=== PATIENT | female | born 1960 | race Caucasian/White ===

== ENCOUNTER 2019-06-02 12:09 | Inpatient (IN) | payer SELFPAY ==
[~2019-06-02] VITALS: Ht 177.8 cm; Wt 115.0 kg
[2019-06-02] MEDS ORDERED: LACTATED RINGERS 1,000 ML IV STA (12:20)
[2019-06-02] MEDS ORDERED: ONDANSETRON 4 MG/2 ML (SDV) Z0FRAN IVP ONE (12:30)
--- NOTE | 2019-06-02 12:40 | ED General ---
General Chief Complaint: Dizziness/Syncope Stated Complaint: FREQUENT FAINTING Nursing Triage Note: PT PRESENTS TO ER VIA W/C FROM POV WITH C/O DIZZINESS X 6 HOURS, N/V X 12 HOURS. pT IS WEAK AND VOMITING YELLOW EMESIS UPON ARRIVAL. PT IS A&O 4. PT DENIES ANY PAIN OR SOB AT THIS TIME. Nursing Sepsis Screen: No Definite Risk Source of Information: Patient Exam Limitations: No Limitations History of Present Illness Date Seen by Provider: Jun 02, 2019 Time Seen by Provider: 12:14 Initial Comments Here by POV with report of dizziness for the last 12 hours with persistent nausea and vomiting and overall feeling sick for the last 24-48 hours. States the dizziness started at 12:30 AM this morning and has been quite severe. This is caused her to pass out or nearly passed out multiple times. She had started taking an antibiotic that was not hers for possible illness. She thought that maybe she had an intestinal blockage due to the vomiting. Reports constipation and started MiraLAX. She has not had a bowel movement. On arrival, patient quite dizzy and unable to assist with movement from car to wheelchair or wheelchair to bed and almost fell on both moves. Required multiple assistance to get her from the wheelchair to the bed. She states when she opens her eyes she is more dizzy and the room is spinning. Unsure about fevers. States that she feels weak all over. Patient reports vomiting bile and family member agrees with this. Timing/Duration: 1-2 Days, Getting Worse Severity: Moderate, Severe Associated Systoms: No Cough, No Fever/Chills; Loss of Appetite, Nausea/Vomiting; No Shortness of Air; Syncope, Weakness Allergies and Home Medications Allergies Coded Allergies: Iodinated Contrast Media - IV Dye (Unverified Allergy, Mild, 08/26/16) stratching throat, hives Home Medications Lisinopril 20 Mg Tablet, 20 MG PO DAILY, (Reported) Patient Home Medication List Home Medication List Reviewed: Yes Review of Systems Review of Systems Constitutional: see HPI, chills; No fever EENTM: No nose congestion, No throat pain Respiratory: No short of breath, No wheezing Cardiovascular: No chest pain, No edema; syncope Gastrointestinal: abdominal pain (right lower quadrant), constipation; No diarrhea; nausea, vomiting Genitourinary: no symptoms reported Musculoskeletal: No back pain; muscle weakness Skin: No change in color, No lesions Psychiatric/Neurological: Weakness, Other (dizziness) Hematologic/Lymphatic: No Symptoms Reported All Other Systems Reviewed Negative Unless Noted: Yes Past Ogncceo-Kzfobi-Pwviqf Hx Past Med/Social Hx: Reviewed Nursing Past Med/Soc Hx Patient Social History Alcohol Use: Denies Use Recreational Drug Use: No Smoking Status: Current Everyday Smoker Recent Foreign Travel: No Contact w/Someone Who Travel: No Recent Infectious Disease Expo: No Past Medical History 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 oz. 114.498953ya; BMI Method:Stated General Appearance: WD/WN, Moderate Distress HEENT: PERRL/EOMI, TMs Normal, Pharynx Normal Neck: Non Tender, Supple Respiratory: Chest Non Tender, Lungs Clear Cardiovascular: Regular Rate, Rhythm, No Murmur Gastrointestinal: Soft, Tenderness (right lower quadrant) Back: Normal Inspection, No CVA Tenderness, No Vertebral Tenderness Extremity: Normal Range of Motion, Non Tender Neurologic/Psychiatric: Alert, Oriented x3, Other (unable to stand without significant assistance due to weakness and dizziness. Moves all extremities.) Skin: Normal Color, Warm/Dry Focused Exam Lactate Level 06/02/19 12:23: Lactic Acid Level 2.38*H 06/02/19 14:23: Lactic Acid Level 1.31 Lactic Acid Level Laboratory Tests Test 06/02/19 14:23 Lactic Acid Level 1.31 MMOL/L (0.50-2.00) Progress/Results/Core Measures Suspected Sepsis Recent Fever Within 48 Hours: No Infection Criteria Present: None New/Unexplained Altered Menta: No Sepsis Screen: No Definite Risk SIRS Temperature:97.5 Pulse: 72 Respiratory Rate: 16 Laboratory Tests 06/02/19 12:23: White Blood Count 14.8H Blood Pressure 124 /95 Mean: 105 06/02/19 12:23: Lactic Acid Level 2.38*H 06/02/19 14:23: Lactic Acid Level 1.31 Laboratory Tests 06/02/19 12:23: Creatinine 0.87, Platelet Count 246, Total Bilirubin 0.6 Results/Orders Lab Results Laboratory Tests Test 06/02/19 12:23 06/02/19 12:48 06/02/19 14:23 Range/Units White Blood Count 14.8 H 4.3-11.0 10^3/uL Red Blood Count 4.70 4.35-5.85 10^6/uL Hemoglobin 14.3 11.5-16.0 G/DL Hematocrit 42 35-52 % Mean Corpuscular Volume 89 80-99 FL Mean Corpuscular Hemoglobin 30 25-34 PG Mean Corpuscular Hemoglobin Concent 34 32-36 G/DL Red Cell Distribution Width 12.9 10.0-14.5 % Platelet Count 246 130-400 10^3/uL Mean Platelet Volume 11.7 H 7.4-10.4 FL Neutrophils (%) (Auto) 71 42-75 % Lymphocytes (%) (Auto) 24 12-44 % Monocytes (%) (Auto) 5 0-12 % Eosinophils (%) (Auto) 0 0-10 % Basophils (%) (Auto) 0 0-10 % Neutrophils # (Auto) 10.5 H 1.8-7.8 X 10^3 Lymphocytes # (Auto) 3.5 1.0-4.0 X 10^3 Monocytes # (Auto) 0.7 0.0-1.0 X 10^3 Eosinophils # (Auto) 0.1 0.0-0.3 10^3/uL Basophils # (Auto) 0.0 0.0-0.1 10^3/uL Neutrophils % (Manual) 70 % Lymphocytes % (Manual) 23 % Monocytes % (Manual) 6 % Eosinophils % (Manual) 1 % Basophils % (Manual) 0 % Blood Morphology Comment NORMAL Sodium Level 142 135-145 MMOL/L Potassium Level 4.1 3.6-5.0 MMOL/L Chloride Level 104 98-107 MMOL/L Carbon Dioxide Level 27 21-32 MMOL/L Anion Gap 11 5-14 MMOL/L Blood Urea Nitrogen 13 7-18 MG/DL Creatinine 0.87 0.60-1.30 MG/DL Estimat Glomerular Filtration Rate > 60 BUN/Creatinine Ratio 15 Glucose Level 142 H 70-105 MG/DL Lactic Acid Level 2.38 *H 1.31 0.50-2.00 MMOL/L Calcium Level 9.9 8.5-10.1 MG/DL Corrected Calcium 9.6 8.5-10.1 MG/DL Total Bilirubin 0.6 0.1-1.0 MG/DL Aspartate Amino Transf (AST/SGOT) 16 5-34 U/L Alanine Aminotransferase (ALT/SGPT) 33 0-55 U/L Alkaline Phosphatase 113 40-136 U/L Troponin I < 0.028 <0.028 NG/ML C-Reactive Protein High Sensitivity 1.69 H 0.00-0.50 MG/DL Total Protein 7.5 6.4-8.2 GM/DL Albumin 4.4 3.2-4.5 GM/DL Amylase Level 101 25-125 U/L Lipase 25 8-78 U/L TSH Freeman Testing 2.72 0.35-4.94 UIU/ML Urine Color YELLOW Urine Clarity CLEAR Urine pH 6 5-9 Urine Specific Chrisney 1.020 1.016-1.022 Urine Protein 1+ H NEGATIVE Urine Glucose (UA) NEGATIVE NEGATIVE Urine Ketones NEGATIVE NEGATIVE Urine Nitrite NEGATIVE NEGATIVE Urine Bilirubin NEGATIVE NEGATIVE Urine Urobilinogen 1 NORMAL MG/DL Urine Leukocyte Esterase NEGATIVE NEGATIVE Urine RBC (Auto) NEGATIVE NEGATIVE Urine RBC NONE /HPF Urine WBC NONE /HPF Urine Squamous Epithelial Cells RARE /HPF Urine Crystals NONE /LPF Urine Bacteria NEGATIVE /HPF Urine Casts NONE /LPF Urine Mucus NEGATIVE /LPF Urine Culture Indicated NO My Orders Orders - JENNIFER CORDERO MD Amylase (06/02/19 12:20) Cbc With Automated Diff (06/02/19 12:20) Comprehensive Metabolic Panel (06/02/19 12:20) Hs C Reactive Protein (06/02/19 12:20) Lactic Acid Analyzer (06/02/19 12:20) Lipase (06/02/19 12:20) Troponin I (06/02/19 12:20) Ua Culture If Indicated (06/02/19 12:20) Blood Culture (06/02/19 12:20) Chest 1 View, Ap/Pa Only (06/02/19 12:20) Ekg Tracing (06/02/19 12:20) Straight Cath For Spec.-Adult (06/02/19 12:20) Ondansetron Injection (Zofran Injectio (06/02/19 12:30) Lactated Ringers (Lr 1000 Ml Iv Solution (06/02/19 12:20) Ed Iv/Invasive Line Start (06/02/19 12:20) Manual Differential (06/02/19 12:23) Ct Abdomen/Pelvis Wo (06/02/19 13:15) Promethazine Injection (Phenergan Injec (06/02/19 13:53) Ed Iv/Invasive Line Start (06/02/19 14:59) Lactated Ringers (Lr 1000 Ml Iv Solution (06/02/19 14:59) Thyroid Analyzer (06/02/19 15:37) Ceftriaxone For Iv Use (Rocephin For I (06/02/19 16:15) Medications Given in ED Current Medications Medications Dose Ordered Sig/Glenn Route Start Time Stop Time Status Last Admin Dose Admin Ceftriaxone Sodium 1000 mg/ Sterile Water 10 ml @ 200 mls/hr ONCE ONCE IV 06/02/19 16:15 06/02/19 16:17 DC 06/02/19 16:20 200 MLS/HR Lactated Ringer's 1,000 ml @ 0 mls/hr Q0M ONCE IV 06/02/19 14:59 06/02/19 15:00 DC 06/02/19 14:35 0 MLS/HR Ondansetron HCl 8 mg ONCE ONCE IVP 06/02/19 12:30 06/02/19 12:31 DC 06/02/19 12:40 8 MG Vital Signs/I&O 06/02/19 12:29 Temp 97.5 Pulse 72 Resp 16 B/P (MAP) 124/95 (105) Pulse Ox 98 O2 Delivery Room Air Capillary Refill : Less Than 3 Seconds Blood Pressure Mean: 105 Progress Note : Progress Note Seen and evaluated. IV, labs, UA, cultures, lactic acid, LR 1 L bolus, chest x- ray and CT abdomen and pelvis without contrast due to contrast allergy. Monitor patient. Repeat bolus with LR 1 L. Patient did have repeat dosing of antiemetic after initial first dose of 8 mg Zofran and then followed up by 25 mg of Phenergan due to persistent nausea and vomiting. This did help. She does have some residual dizziness. 1605: I did discuss the case with Dr. Hull on-call for [facility] and she accepts patient for admission, inpatient status and request consult with surgery. 1610: I did discuss case with Dr. Glass and he accepts patient in consult. We will do Rocephin and Flagyl for the diverticulitis with continuation of fluids and clear liquid diet. Discussed with patient and family who agree with plan. Rocephin 1 g IV initiated in the emergency department. ECG Initial ECG Impression Date: Jun 02, 2019 Initial ECG Impression Time: 12:21 Initial ECG Rate: 58 Initial ECG Rhythm: Normal Sinus Initial ECG Comparisson: Unchanged Comment Sinus rhythm with left atrial abdomen mildly. Leftward axis. No evidence of ST elevation MN. Interpreted by me. Diagnostic Imaging Diagonstic Imaging: Xray Plain Films/CT/US/NM/MRI: chest Comments [facility] [place], [place] NAME: TU WILKINS [facility] REC#: [id number] PT STATUS: REG ER : 1960 PHYSICIAN: JENNIFER CORDERO MD ADMIT DATE: 06/02/19/ER Draft Date of Exam:06/02/19 CHEST 1 VIEW, AP/PA ONLY INDICATION: Dizziness. Weakness. Emesis. Shortness of air. COMPARISON: None FINDINGS: Single frontal view of the chest demonstrates normal heart size and pulmonary vascularity. The lungs are well aerated and clear. No large pleural effusion or pneumothorax is seen. The visualized osseous structures show no acute abnormalities. IMPRESSION: 1. No acute cardiopulmonary process. Dictated on workstation # [id number] Dict: 06/02/19 1354 Trans: 06/02/19 1357 [facility] [id number] Interpreted by: ALETHA PERKINS MD Electronically signed by: Diagonstic Imaging: CT Plain Films/CT/US/NM/MRI: abdomen, pelvis Comments [facility] [place] NAME: CLAUDETTETU [facility] REC#: [id number] PT STATUS: REG ER : 1960 PHYSICIAN: JENNIFER CORDERO MD ADMIT DATE: 06/02/19/ER Draft Date of Exam:06/02/19 CT ABDOMEN/PELVIS WO PROCEDURE: CT abdomen and pelvis without contrast. TECHNIQUE: Multiple contiguous axial images were obtained through the abdomen and pelvis without the use of intravenous contrast. Auto Exposure Controls were utilized during the CT exam to meet ALARA standards for radiation dose reduction. INDICATION: Nausea and vomiting Study compared to 08/26/2016. Findings There is no hydroureteronephrosis. No opaque urinary tract calculi are found. Sigmoid diverticulosis is again noted however there is some new edematous changes and inflammatory findings adjacent to the proximal sigmoid colon in the left lower quadrant suspicious for mild active diverticulitis. No extraluminal air or transmural perforation is found and there is no resultant bowel obstruction. No abscess or drainable fluid collection. Uterus, adnexa and urinary bladder have an unremarkable appearance. There is no appendicitis. Liver, gallbladder, bile ducts, spleen, adrenals and pancreas unremarkable. The aorta is nonaneurysmal. IMPRESSION: Changes are consistent with a mild acute sigmoid diverticulitis without obstruction, findings of transmural perforation or abscess. Dictated on workstation # [id number] Dict: 06/02/19 1442 Trans: 06/02/19 1449 [facility] [id number] Interpreted by: LAURA ORDONEZ Electronically signed by: Departure Communication (Admissions) Time/Spoke to Admitting Phy: 16:05 Time/Spoke to Consulting Phy: 16:10 Impression Primary Impression: Diverticulitis Additional Impressions: Dizziness Nausea and vomiting Qualified Codes: R11.2 - Nausea with vomiting, unspecified Disposition: ADMITTED INPATIENT Condition: Stable Admissions Decision to Admit Reason: Admit from ER (General) Decision to Admit/Date: Jun 02, 2019 Time/Decision to Admit Time: 16:05 JENNIFER CORDERO MD Jun 02, 2019 12:40
[2019-06-02 12:50] LABS: BASOPHILS % (AUTO) 0 % (0-10); EOSINOPHILS # (AUTO) 0.1 10^3/uL (0.0-0.3); EOSINOPHILS % (AUTO) 0 % (0-10); HEMATOCRIT 42 % (35-52); HEMOGLOBIN 14.3 G/DL (11.5-16.0); LYMPHOCYTES # (AUTO) 3.5 X 10^3 (1.0-4.0); LYMPHOCYTES % (AUTO) 24 % (12-44); MEAN CORPUSCULAR HEMOGLOBIN 30 PG (25-34); MEAN CORPUSCULAR HGB CONC 34 G/DL (32-36); MEAN CORPUSCULAR VOLUME 89 FL (80-99); MEAN PLATELET VOLUME 11.7 FL (7.4-10.4); MONOCYTES # (AUTO) 0.7 X 10^3 (0.0-1.0); MONOCYTES % (AUTO) 5 % (0-12); NEUTROPHILS # (AUTO) 10.5 X 10^3 (1.8-7.8); NEUTROPHILS % (AUTO) 71 % (42-75); PLATELET COUNT 246 10^3/uL (130-400); RED CELL DISTRIBUTION WIDTH 12.9 % (10.0-14.5); WHITE BLOOD COUNT 14.8 10^3/uL (4.3-11.0)
[2019-06-02 12:55] LABS: ALANINE AMINOTRANSFERASE 33 U/L (0-55); ALBUMIN 4.4 GM/DL (3.2-4.5); ALKALINE PHOSPHATASE 113 U/L (40-136); AMYLASE 101 U/L (25-125); BILIRUBIN,TOTAL 0.6 MG/DL (0.1-1.0); BUN/CREATININE RATIO 15; CALCIUM 9.9 MG/DL (8.5-10.1); CARBON DIOXIDE 27 MMOL/L (21-32); CHLORIDE 104 MMOL/L (98-107); CREATININE SERUM 0.87 MG/DL (0.60-1.30); GFR ESTIMATED > 60; GLUCOSE 142 MG/DL (70-105); LIPASE 25 U/L (8-78); POTASSIUM 4.1 MMOL/L (3.6-5.0); SODIUM 142 MMOL/L (135-145); TOTAL PROTEIN 7.5 GM/DL (6.4-8.2)
[2019-06-02 12:59] LABS: BILIRUBIN,URINE NEGATIVE (NEGATIVE); CLARITY,URINE CLEAR; COLOR,URINE YELLOW; GLUCOSE, URINE (UA) NEGATIVE (NEGATIVE); KETONES,URINE NEGATIVE (NEGATIVE); LEUKOCYTE ESTERASE ,URINE NEGATIVE (NEGATIVE); NITRITE,URINE NEGATIVE (NEGATIVE); PH,URINE 6 (5-9); PROTEIN,URINE 1+ (NEGATIVE); UROBILINOGEN,URINE 1 MG/DL (NORMAL)
[2019-06-02 13:05] LABS: BACTERIA,URINE NEGATIVE /HPF; SQUAMOUS EPITHELIAL CELL,UR RARE /HPF
--- NOTE | 2019-06-02 13:30 | NUR ---
Pt started vomiting again, Dr notified for more anti-emetic medicine at this time.
[2019-06-02 13:31] LABS: BASOPHILS % (MANUAL) 0 %; EOSINOPHILS % (MANUAL) 1 %; LYMPHOCYTES % (MANUAL) 23 %; MONOCYTES % (MANUAL) 6 %; NEUTROPHILS % (MANUAL) 70 %; RBC MORPH NORMAL
[2019-06-02] MEDS ORDERED: PROMETHAZINE INJ 25 MG/ML (PHENERGAN) AMP IVP STA (13:53)
--- NOTE | 2019-06-02 13:58 | Diagnostic Imaging Report ---
INDICATION: Dizziness. Weakness. Emesis. Shortness of air. COMPARISON: None FINDINGS: Single frontal view of the chest demonstrates normal heart size and pulmonary vascularity. The lungs are well aerated and clear. No large pleural effusion or pneumothorax is seen. The visualized osseous structures show no acute abnormalities. IMPRESSION: 1. No acute cardiopulmonary process. Dictated by: Dictated on workstation # [id number]
--- NOTE | 2019-06-02 14:49 | Diagnostic Imaging Report ---
PROCEDURE: CT abdomen and pelvis without contrast. TECHNIQUE: Multiple contiguous axial images were obtained through the abdomen and pelvis without the use of intravenous contrast. Auto Exposure Controls were utilized during the CT exam to meet ALARA standards for radiation dose reduction. INDICATION: Nausea and vomiting Study compared to 08/26/2016. Findings There is no hydroureteronephrosis. No opaque urinary tract calculi are found. Sigmoid diverticulosis is again noted however there is some new edematous changes and inflammatory findings adjacent to the proximal sigmoid colon in the left lower quadrant suspicious for mild active diverticulitis. No extraluminal air or transmural perforation is found and there is no resultant bowel obstruction. No abscess or drainable fluid collection. Uterus, adnexa and urinary bladder have an unremarkable appearance. There is no appendicitis. Liver, gallbladder, bile ducts, spleen, adrenals and pancreas unremarkable. The aorta is nonaneurysmal. IMPRESSION: Changes are consistent with a mild acute sigmoid diverticulitis without obstruction, findings of transmural perforation or abscess. Dictated by: Dictated on workstation # [id number]
[2019-06-02] MEDS ORDERED: LACTATED RINGERS 1,000 ML IV ONE (14:59)
[2019-06-02] MEDS ORDERED: ATOR80TA76 PO (15:11)
[2019-06-02] MEDS ORDERED: LEVO100V8 IV (15:11)
[2019-06-02] MEDS ORDERED: METO5TAB75 PO (15:11)
[2019-06-02] MEDS ORDERED: LISI-552 PO (15:11)
--- NOTE | 2019-06-02 16:13 | NUR ---
Assisted pt to bedside commode at this time. Pt reports feeling dizzy during transfer.
[2019-06-02] MEDS ORDERED: cefTRIAXone FOR IV USE 1,000 MG in WATER (STERILE) FOR INJECTION 10 ML IV ONE (16:15)
--- NOTE | 2019-06-02 17:55 | NUR ---
TU WILKINS admitted to room 419-1, with an admitting diagnosis of DIVERTICULITIS, on 06/02/19 from ER via CART, accompanied by STAFF.TU WILKINS introduced to surroundings, call light, bed controls, phone, TV, temperature control, lights, meal times, smoking policy, visitor policy, side rail policy, bathrooms and showers. Patient Rights given to patient in the handbook.TU WILKINS verbalizes understanding that [facility] is not responsible for the loss or damage to any personal effects or valuables that are kept in the patients posession during their hospitalization. The following Patient Care Plans were discussed with the PT: Discharge Planning, PAIN CONTROL,IV AND ANTIBIOTIC TX, and TESTS AND PROCEDURES. TU WILKINS verbalizes understanding of Interdisciplinary Patient Education. Patient and/or family were informed about the Rapid Response Team and its purpose.
[2019-06-02 18:00] VITALS: BP 132/73
--- NOTE | 2019-06-02 18:04 | History & Physical-Hospitalist ---
History of Present Illness HPI/Chief Complaint Chief complaint: Abdominal pain with dizziness History of present illness: This is a 59-year-old white female clinic patient of [facility] who presented to [facility] ER with severe left lower quadrant pain with nausea and vomiting and the severity of the pain had increased since Friday. She had a colonoscopy back in the 1970s. She is never had any bowel problems. She reports that the drive over here over each bump made the abdominal pain worse. Upon work-up she was found to have leukocytosis and severe abdominal pain so CT scan was obtained showing left-sided colonic diverticulitis and elevated lactic acid at 2.38. Her urinalysis and chest x-ray were both normal. She was placed on IV antibiotics IV fluids and currently she feels much better but is still having a lot of pain in the left lower quadrant. Dr. Glass was consulted and will help manage the diverticulitis. Her is at the bedside. She is a retired recycler forklift driver truck driver. Source: patient, RN/MD Date Seen 06/02/19 Time Seen by a Provider: 17:20 Attending Physician Xena Hull DO [facility] Referring Physician Date of Admission Jun 02, 2019 at 16:40 Home Medications & Allergies Home Medications Reviewed patient Home Medication Reconciliation performed by pharmacy medication reconciliations senior telecommunications technician and/or nursing. Patients Allergies have been reviewed. Allergies Allergies Coded Allergies Iodinated Contrast- Oral and IV Dye (Unverified Allergy, Mild, 08/26/16) stratching throat, hives aspirin (Verified Allergy, Unknown, 06/02/19) BLEEDING codeine (Verified Allergy, Unknown, 06/02/19) LOW BP Past Uogrocs-Rgxcwn-Gcykph Hx Past Med/Social Hx: Reviewed Nursing Past Med/Soc Hx, Reviewed and Corrections made Patient Social History Marrital Status: Employed/Student: employed (recycler forklift driver truck driver) Alcohol Use: Denies Use Recreational Drug Use: No Smoking Status: Current Everyday Smoker 2nd Hand Smoke Exposure: No Recent Foreign Travel: No Contact w/other who traveled: No Recent Hopitalizations: No Recent Infectious Disease Expo: No Seasonal Allergies Seasonal Allergies: No Past Medical History Surgeries: Appendectomy, Hysterectomy Hysterectomy Endocrine: Hypothyroidsim History of Blood Disorders: No Family History Reviewed and Corrections made No Pertinent Family Hx Review of Systems Constitutional: see HPI, malaise, weakness EENTM: no symptoms reported Respiratory: no symptoms reported Cardiovascular: no symptoms reported Gastrointestinal: abdominal pain (LLQ), constipation, loss of appetite, nausea, vomiting Genitourinary: no symptoms reported Musculoskeletal: no symptoms reported Skin: no symptoms reported Psychiatric/Neurological: No Symptoms Reported All Other Systems Reviewed Negative Unless Noted: Yes Physical Exam Physical Exam Vital Signs Vital Signs - First Documented 06/02/19 12:29 Temp 97.5 Pulse 72 Resp 16 B/P (MAP) 124/95 (105) Pulse Ox 98 O2 Delivery Room Air Capillary Refill : Less Than 3 Seconds Height, Weight, BMI Height: 5'10.00" Weight: 253lbs. 9.0oz. 115.501611pe; BMI Method:Stated General Appearance: WD/WN, Mild Distress, Obese HEENT: PERRL/EOMI, Normal ENT Inspection, Pharynx Normal, Moist Mucous Membranes Respiratory: Chest Non Tender, Lungs Clear, Normal Breath Sounds, No Accessory Muscle Use, No Respiratory Distress Cardiovascular: Regular Rate, Rhythm, No Edema, No Gallop, No JVD, No Murmur, Normal Peripheral Pulses Rectal: Tenderness (LLQ) Extremity: Normal Capillary Refill, Normal Inspection, Normal Range of Motion, Non Tender, No Calf Tenderness, No Pedal Edema Neurologic/Psychiatric: Alert, Oriented x3, No Motor/Sensory Deficits, Normal Mood/Affect Results Results/Procedures Labs Laboratory Tests 06/02/19 12:23 Patient resulted labs reviewed. Assessment/Plan Admission Diagnosis Assessment: Acute diverticulitis Elevated lactic acidosis due to hypovolemia Hypothyroidism with normal TSH Leukocytosis Plan: IV abx Pain control IVF Dr Quan moore Admission Status: Inpatient Order (span 2 midnights) Reason for Inpatient Admission: Severe diverticulitis will require 4 days Diagnosis/Problems Diagnosis/Problems (1) Diverticulitis Status: Acute (2) Dehydration Status: Acute (3) Lactic acidosis Status: Acute (4) Leukocytosis Status: Acute Qualifiers: Leukocytosis type: unspecified Qualified Codes: D72.829 - Elevated white blood cell count, unspecified (5) Nausea and vomiting Status: Acute Qualifiers: Vomiting type: unspecified Vomiting Intractability: non-intractable Qualified Codes: R11.2 - Nausea with vomiting, unspecified (6) Dizziness Status: Acute XENA HULL DO Jun 02, 2019 18:04
[2019-06-02] MEDS ORDERED: CATHETER FLUSH 10 ML SYR IV PRN (18:15)
[2019-06-02] MEDS ORDERED: PROMETHAZINE INJ 25 MG/ML (PHENERGAN) AMP IV PRN (18:15)
[2019-06-02] MEDS: metroNIDAZOLE 500 MG/100 ML IVPB (PRE-MIX) IV SCH ×2 (18:28→23:45)
[2019-06-02] MEDS: ONDANSETRON 4 MG/2 ML (SDV) Z0FRAN IV PRN (18:28)
[2019-06-02] MEDS: NS IV 1000 ML 1,000 ML IV SCH (18:29)
[2019-06-02 19:23] VITALS: BP 129/74
[2019-06-02] MEDS ORDERED: fentaNYL INJECTION 100 MCG/2 ML AMP IVP PRN (21:00)
[2019-06-02] MEDS ORDERED: diphenhydrAMINE 25 MG TAB (BENADRYL) PO PRN (21:00)
[2019-06-02] MEDS ORDERED: CALCIUM CARBONATE 500 MG (TUMS) TAB.CHEW PO PRN (21:00)
[2019-06-02] MEDS: ALPRAZolam 0.25 MG (XANAX) TAB PO PRN (22:19)
[2019-06-03 00:34] VITALS: BP 118/65
[2019-06-03] MEDS: ACETAMINOPHEN 500 MG TAB (TYLENOL) PO PRN ×3 (04:04→16:44)
[2019-06-03 04:29] VITALS: BP 109/60
[2019-06-03] MEDS: NS IV 1000 ML 1,000 ML IV SCH ×3 (04:31→13:32)
[2019-06-03] MEDS: metroNIDAZOLE 500 MG/100 ML IVPB (PRE-MIX) IV SCH ×4 (05:37→23:57)
[2019-06-03 06:46] LABS: BASOPHILS % (AUTO) 0 % (0-10); EOSINOPHILS # (AUTO) 0.1 10^3/uL (0.0-0.3); EOSINOPHILS % (AUTO) 1 % (0-10); HEMATOCRIT 36 % (35-52); HEMOGLOBIN 11.8 G/DL (11.5-16.0); LYMPHOCYTES % (AUTO) 36 % (12-44); MEAN CORPUSCULAR HEMOGLOBIN 30 PG (25-34); MEAN CORPUSCULAR HGB CONC 33 G/DL (32-36); MEAN CORPUSCULAR VOLUME 92 FL (80-99); MEAN PLATELET VOLUME 11.7 FL (7.4-10.4); MONOCYTES # (AUTO) 0.5 X 10^3 (0.0-1.0); MONOCYTES % (AUTO) 6 % (0-12); NEUTROPHILS # (AUTO) 4.7 X 10^3 (1.8-7.8); NEUTROPHILS % (AUTO) 56 % (42-75); PLATELET COUNT 204 10^3/uL (130-400); WHITE BLOOD COUNT 8.4 10^3/uL (4.3-11.0)
[2019-06-03 06:57] LABS: ALANINE AMINOTRANSFERASE 22 U/L (0-55); ALBUMIN 3.4 GM/DL (3.2-4.5); ALKALINE PHOSPHATASE 91 U/L (40-136); BILIRUBIN,TOTAL 0.4 MG/DL (0.1-1.0); BUN/CREATININE RATIO 7; CALCIUM 8.6 MG/DL (8.5-10.1); CARBON DIOXIDE 25 MMOL/L (21-32); CHLORIDE 107 MMOL/L (98-107); CREATININE SERUM 0.81 MG/DL (0.60-1.30); GFR ESTIMATED > 60; GLUCOSE 97 MG/DL (70-105); POTASSIUM 3.5 MMOL/L (3.6-5.0); SODIUM 143 MMOL/L (135-145); TOTAL PROTEIN 5.6 GM/DL (6.4-8.2)
[2019-06-03 08:00] VITALS: BP 111/63
[2019-06-03] MEDS ORDERED: METO5TAB2 PO (09:25)
[2019-06-03] MEDS ORDERED: LEVO75TA6 PO (09:25)
[2019-06-03] MEDS ORDERED: VITA1CAP PO (09:30)
[2019-06-03] MEDS ORDERED: MULT1TAB69 PO (09:30)
[2019-06-03] MEDS ORDERED: OMEG1CAP PO (09:31)
--- NOTE | 2019-06-03 09:31 | NUR ---
SPOKE WITH THE PATIENT ABOUT HER MEDICATIONS. WE WENT OVER THE EXT MED HX AND SHE LISTED HER OTC MEDS. IN ADDITION TO WHAT IS SHOWN ON THE EXT MED HX [facility] FILLED: 04-30-19 LOVAZA 2 BID #[id number] 04-19-19 LIPITOR 80MG DAILY #90 SHE TAKES THE FOLLOWING OTC: B COMPLEX DAILY MTV DAILY
[2019-06-03] MEDS: ENOXAPARIN 40 MG/0.4 ML (LOVENOX) SYR SC SCH (09:59)
--- NOTE | 2019-06-03 09:59 | Progress Note - Hospitalist ---
Subjective HPI/CC On Admission Date Seen by Provider: Jun 03, 2019 Time Seen by Provider: 09:30 Chief complaint: Abdominal pain with dizziness History of present illness: This is a 59-year-old white female clinic patient of [facility] who presented to [facility] ER with severe left lower quadrant pain with nausea and vomiting and the severity of the pain had increased since Friday. She had a colonoscopy back in the 1970s. She is never had any bowel problems. She reports that the drive over here over each bump made the abdominal pain worse. Upon work-up she was found to have leukocytosis and severe abdominal pain so CT scan was obtained showing left-sided colonic diverticulitis and elevated lactic acid at 2.38. Her urinalysis and chest x-ray were both normal. She was placed on IV antibiotics IV fluids and currently she feels much better but is still having a lot of pain in the left lower quadrant. Dr. Glass was consulted and will help manage the diverticulitis. Her is at the bedside. She is a retired industrial truck operator. Subjective/Events-last exam Pt having such severe vertigo she can't really function. Pain in the left lower quadrant will be addressed by Dr. Glass but he reports it was only a mild diverticulitis but we will continue the treatment as is and I did also speak with Dr. Hardy and he will send over his mid-level membership assistant to assess but she has had a vertigo episode in the past when she saw Dr. Flores. Will initiate PT and OT. very disrespectful and very rude and mean when I was in the room which was out of character for him since I had spoke with him at the bedside in the ER yesterday and he seemed to be very reasonable. He seems very dissatisfied and just really hateful and will talk to the nurse cosmetic manager in order to talk to him and evaluate further, but when I asked him if he had any concerns he threw his blanket that he had over his legs on to the floor and just looked out the window, almost near a threatening episode with him so wi ll monitor that closely to make sure there is no danger to this examiner from the Pt's . Review of Systems General: Fatigue Gastrointestinal: Abdominal Pain (LLQ) Neurological: Incoordination, Other (dizzy) Focused Exam Lactate Level 06/02/19 12:23: Lactic Acid Level 2.38*H 06/02/19 14:23: Lactic Acid Level 1.31 Objective Exam Vital Signs Vital Signs Date Time Temp Pulse Resp B/P (MAP) Pulse Ox O2 Delivery O2 Flow Rate FiO2 06/03/19 16:00 97.4 61 20 135/67 (89) 94 Room Air Capillary Refill : Less Than 3 Seconds General Appearance: No Apparent Distress, WD/WN, Chronically ill Respiratory: Chest Non Tender, Lungs Clear, Normal Breath Sounds, No Accessory Muscle Use, No Respiratory Distress Cardiovascular: Regular Rate, Rhythm, No Edema, No Gallop, No JVD, No Murmur, Normal Peripheral Pulses Gastrointestinal: Normal Bowel Sounds, No Organomegaly, No Pulsatile Mass, Soft, Tenderness (LLQ) Neurologic/Psychiatric: Alert, Oriented x3, No Motor/Sensory Deficits, Normal Mood/Affect Results/Procedures Lab Laboratory Tests 06/03/19 05:25 Patient resulted labs reviewed. Assessment/Plan Assessment and Plan Assess & Plan/Chief Complaint Assessment: Acute diverticulitis Gram negative bacteremia Severe vertigo Plan: IV abx ENT consult Dr Huff consult DR Glass consult CT brain Diagnosis/Problems Diagnosis/Problems (1) Diverticulitis Status: Acute (2) Dehydration Status: Acute (3) Lactic acidosis Status: Acute (4) Leukocytosis Status: Acute Qualifiers: Leukocytosis type: unspecified Qualified Codes: D72.829 - Elevated white blood cell count, unspecified (5) Nausea and vomiting Status: Acute Qualifiers: Vomiting type: unspecified Vomiting Intractability: non-intractable Qualified Codes: R11.2 - Nausea with vomiting, unspecified (6) Dizziness Status: Acute (7) Vertigo Status: Acute (8) Acute labyrinthitis Status: Acute Qualifiers: Laterality: bilateral Qualified Codes: H83.03 - Labyrinthitis, bilateral (9) Gram-negative bacteremia Status: Acute Clinical Quality Measures DVT/VTE Risk/Contraindication: Risk Factor Score Per Nursin RFS Level Per Nursing on Admit: 4+=Very High TRAM HATHAWAY DO Jun 03, 2019 09:59
[2019-06-03] MEDS: ALPRAZolam 0.25 MG (XANAX) TAB PO PRN (10:08)
--- NOTE | 2019-06-03 10:30 | NUR ---
DR HATHAWAY NOTIFIED THIS RN IN REGARDS TO NEW CONSULT FOR PT. ORDER PLACED.
[2019-06-03 12:00] VITALS: BP 133/75
[2019-06-03] MEDS ORDERED: DIAZEPAM 2 MG (VALIUM) TAB PO PRN ×2 (13:15→13:30)
--- NOTE | 2019-06-03 14:07 | Physical Therapy Evaluation ---
PT Evaluation-General Medical Diagnosis Admission Date Jun 02, 2019 at 16:40 Medical Diagnosis: diverticulosis/dizziness/N&V Onset Date: Jun 02, 2019 Therapy Diagnosis Therapy Diagnosis: Vertigo Height/Weight Height (Feet): 5 Height (Inches): 10.00 Weight (Pounds): 253 Weight (Ounces): 9.0 Precautions Precautions/Isolations: Fall Prevention, Standard Precautions Weight Bear Status Right Lower Extremity: Right Weight Bearing/Tolerated Left Lower Extremity: Left Weight Bearing/Tolerated Referral Physician: Lois Reason for Referral: Evaluation/Treatment Medical History Pertinent Medical History: Hypothroidism, Smoking Additional Medical History Vertigo (per patient she did not respond well to Eply's technique prior) Current History ER secondary to dizziness, N&V x 12 hours Reviewed History: Yes Social History Home: Single Level Current Living Status: Spouse Prior/[facility] Prior Level of Function Therapy Code Descriptions/Definitions Functional [place] Measure: 0=Not Assessed/NA 4=Minimal Assistance 1=Total Assistance 5=Supervision or Setup 2=Maximal Assistance 6=Modified [place] 3=Moderate Assistance 7=Complete [place] Therapy Quality Codes: 6 Independent with activity with or without an assistive device 5 Patient requires set up or clean up by helper. Patient completes activity by themselves 4 Supervision or touching assist (CGA). [place] provide cues , steadying assist 3 The helper provides less than half the effort to complete the activity 2 The helper provides more than half the effort to complete the activity 1 Dependent. The helper does all the effort to complete an activity 7 Patient refused to complete or attempt activity 9 The patient did not perform the activity before the current illness or injury 88 Not attempted due to Medical conditions or safety concerns Functional Abilities and Goals: Independent: Patient completed the activities by him/herself, with or without an assistive device, with no assistance from a helper. Needed Some Help: Patient needed partial assistance from another person to complete activities. Dependent: A helper completed the activities for the patient. Unknown: Not Applicable: Bed Mobility: 7 Transfers (B,C,W/C) (FIM): 7 Gait: 7 Stairs: 7 Indoor Mobility (Ambulation): Independent Stairs: Independent Prior Devices Use: None PT Evaluation-Current Subjective Patient reports her dizziness is less with her eyes closed. Objective Patient Orientation: Normal For Age Problem Solving: Fair Attachments: IV ROM/Strength ROM Lower Extremities bilateral LE WFL Strength Lower Extremities 4/5 grossly bilateral LE Integumentary/Posture Integumentary refer to nursing notes Bowel Incontinence: No Bladder Incontinence: No Neuromuscular (Tone, Coordination, Reflexes) grossly intact Sensory Vision: Functional Hearing: Functional Sensation Right Lower Extremit: Intact Sensation Left Lower Extremity: Intact Transfers Therapy Code Descriptions/Definitions Functional [place] Measure: 0=Not Assessed/NA 4=Minimal Assistance 1=Total Assistance 5=Supervision or Setup 2=Maximal Assistance 6=Modified [place] 3=Moderate Assistance 7=Complete [place] Patient declined OOB activity due to dizziness Treatment Attempted visual exercises to address vertigo, however, patient unable to keep eye open due to dizziness to follow direction. Education and activity given to patient and spouse. PT to see patient in a.m. Assessment/Needs 59 y.o. female, will be seen short term by skilled PT to address vertigo with exercise and possible Eply's procedure. Patient, per her report, did not to lerate this in the past. Rehab Potential: Fair PT Short Term Goals Short Term Goals Time Frame: Jun 09, 2019 Transfers (B,C,W/C) (FIM): 7 Gait (FIM): 7 Additional Short Term Goals Vertigo exercises (visual, etc) PT Plan Treatment/Plan Treatment Plan: Continue Plan of Care Treatment Plan: Education, Functional Activity Joanne, Gait, Safety, Therapeutic Exercise Treatment Duration: Jun 09, 2019 Frequency: 5 times per week Estimated Hrs Per Day: .25 hour per day Patient and/or Family Agrees t: Yes Safety Risks/Education Patient Education: Issued Written HEP, Safety Issues Time/GCodes Time In: 1315 Time Out: 1335 Total Billed Treatment Time: 20 Total Billed Treatment 1 visit EVLow 20 min DIOR TENORIO PT Jun 03, 2019 14:06
--- NOTE | 2019-06-03 14:23 | Progress Note ---
Standard Progress Note Progress Notes/Assess & Plan Date Seen by a Provider: Jun 03, 2019 Time Seen by a Provider: 12:30 Progress/Assessment & Plan S Patient was admitted through the ER for dizziness and diverticulitis. Dr. Hardy was consulted for dizziness. She is resting in her bed with her eyes closed. States she can not open them due to worsening dizziness. Reports the dizziness as spinning in motion. Feels as if she may "pass out" however has not lost consciousness. Has a history of vertigo from the past. O Patient is resting in bed. Ears externally had no lesions. Tympanic membranes were clear with no obvious fluid or infection. Eyes- partially evaluated due to patient cooperation, lateral nystagmus noted. Oral cavity and Mouth were clear. A Labyrinthitis verse neuronitis P Discussed patient with Dr. Hardy. Recommend PT/OT complete vestibular exercises as they are able. Order Valium 2mg 1 Tab Q8 PRN x 7 days for spinning sensation. Follow up in office upon discharge. Final Diagnosis labyrinthitis Focused Exam Lactate Level 06/02/19 12:23: Lactic Acid Level 2.38*H 06/02/19 14:23: Lactic Acid Level 1.31 LESLEE GORE INDUSTRIAL ELECTRICIAN JOURNEYMAN Jun 03, 2019 14:23
--- NOTE | 2019-06-03 14:25 | NUR ---
PT IN ROUTE TO CT VIA STRETCHER ACCOMPANIED BY STAFF. THIS RN WILL AWAIT PT RETURN TO FLOOR.
--- NOTE | 2019-06-03 14:40 | NUR ---
PT BACK TO FLOOR FROM CT. PT VOICES NO CONCERNS AT THIS TIME
--- NOTE | 2019-06-03 15:12 | Diagnostic Imaging Report ---
INDICATION: Dizziness x6 days. Noncontrast brain CT is performed. There are no extra-axial fluid collections. No intracranial hemorrhage. No intracranial mass or mass effect. No midline shift. The ventricles are normal in size and position. There are no focal parenchymal abnormalities in the brain. Calvarial windows are unremarkable. IMPRESSION: Negative noncontrast brain CT. Dictated by: Dictated on workstation # [id number]
--- NOTE | 2019-06-03 15:27 | Occ Therapy Progress Note ---
Therapy Progress Note OT attempt x3 to see pt. Pt was in CT, doctor, and echocardiogram. OT did speak with pt, pt requested OT eval next day. Nursing made aware. YASMEEN MARINA OTR Jun 03, 2019 15:27
[2019-06-03] MEDS ORDERED: HYDROcodone/APAP 7.5 MG/325 MG (LORTAB, LORCET PLUS) TABLET PO PRN (15:30)
[2019-06-03 16:00] VITALS: BP 135/67
[2019-06-03] MEDS ORDERED: cefTRIAXone 1,000 MG/SWFI 10 ML IV PUSH IV SCH ×2 (16:00)
--- NOTE | 2019-06-03 16:13 | Consultation-Cardiology ---
HPI-Cardiology Cardiology Consultation Date of Consultation 06/03/19 Date of Admission Time Seen by Provider: 16:07 Indication: Gram-negative sepsis HPI 59-year-old lady with history of hypertension, hyperlipidemia and hypothyroidism, had upper respiratory tract infection about a month ago had persistent cough for until about 2 weeks ago and felt better for a week, started last week having dizziness and vertigo, unable to walk without getting dizzy and having nausea and vomiting. Unable to look to the right side. Still having the dizziness and vertigo for the past week, starting to have abdominal pain, had gram-negative rods in her blood culture. Diagnosed with diverticulitis. 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) Alcohol Use: Denies Use Recreational Drug Use: No Smoking Status: Never a Smoker 2nd Hand Smoke Exposure: No Recent Foreign Travel: No Recent Infectious Disease Expo: No Recent Hopitalizations: No Physical Abuse Screen: No Sexual Abuse: No Past Medical History Discussed below Family Medical History Significant Family History: No Pertinent Family Hx Family Medical Hx Noncontributory to her current condition Review of Systems-General Review of Systems Constitutional: see HPI, dizziness, malaise, weakness EENTM: no symptoms reported Respiratory: see HPI, cough; No dyspnea on exertion, No hemoptysis, No orthopnea, No phlegm, No short of breath, No stridor, No wheezing, No other Cardiovascular: see HPI; No chest pain, No edema, No Hx of Intervention, No pal pitations, No syncope, No vascular heart diseas, No other Gastrointestinal: abdominal pain (LLQ), constipation, loss of appetite, nausea, vomiting Genitourinary: no symptoms reported Musculoskeletal: see HPI; No back pain, No gout, No joint pain, No joint swelling, No muscle pain, No muscle stiffness, No muscle cramps, No muscle twitching, No muscle weakness, No neck pain, No other Skin: see HPI Psychiatric/Neurological: See HPI All Other Systems Reviewed Negative Unless Noted: Yes Reviewed Test Results Reviewed Test Results Lab Laboratory Tests Test 06/03/19 05:25 Range/Units White Blood Count 8.4 4.3-11.0 10^3/uL Red Blood Count 3.91 L 4.35-5.85 10^6/uL Hemoglobin 11.8 11.5-16.0 G/DL Hematocrit 36 35-52 % Mean Corpuscular Volume 92 80-99 FL Mean Corpuscular Hemoglobin 30 25-34 PG Mean Corpuscular Hemoglobin Concent 33 32-36 G/DL Red Cell Distribution Width 13.0 10.0-14.5 % Platelet Count 204 130-400 10^3/uL Mean Platelet Volume 11.7 H 7.4-10.4 FL Neutrophils (%) (Auto) 56 42-75 % Lymphocytes (%) (Auto) 36 12-44 % Monocytes (%) (Auto) 6 0-12 % Eosinophils (%) (Auto) 1 0-10 % Basophils (%) (Auto) 0 0-10 % Neutrophils # (Auto) 4.7 1.8-7.8 X 10^3 Lymphocytes # (Auto) 3.0 1.0-4.0 X 10^3 Monocytes # (Auto) 0.5 0.0-1.0 X 10^3 Eosinophils # (Auto) 0.1 0.0-0.3 10^3/uL Basophils # (Auto) 0.0 0.0-0.1 10^3/uL Sodium Level 143 135-145 MMOL/L Potassium Level 3.5 L 3.6-5.0 MMOL/L Chloride Level 107 98-107 MMOL/L Carbon Dioxide Level 25 21-32 MMOL/L Anion Gap 11 5-14 MMOL/L Blood Urea Nitrogen 6 L 7-18 MG/DL Creatinine 0.81 0.60-1.30 MG/DL Estimat Glomerular Filtration Rate > 60 BUN/Creatinine Ratio 7 Glucose Level 97 70-105 MG/DL Calcium Level 8.6 8.5-10.1 MG/DL Corrected Calcium 9.1 8.5-10.1 MG/DL Total Bilirubin 0.4 0.1-1.0 MG/DL Aspartate Amino Transf (AST/SGOT) 16 5-34 U/L Alanine Aminotransferase (ALT/SGPT) 22 0-55 U/L Alkaline Phosphatase 91 40-136 U/L Total Protein 5.6 L 6.4-8.2 GM/DL Albumin 3.4 3.2-4.5 GM/DL Physical Exam Physical Exam Vital Signs Vital Signs - First Documented 06/02/19 12:29 Temp 97.5 Pulse 72 Resp 16 B/P (MAP) 124/95 (105) Pulse Ox 98 O2 Delivery Room Air Capillary Refill : Less Than 3 Seconds Height, Weight, BMI Height: 5'10.00" Weight: 253lbs. 9.0oz. [id number]; 36.4 BMI Method:Stated General Appearance: WD/WN, Mild Distress, Obese HEENT: Normal ENT Inspection, Pharynx Normal, Moist Mucous Membranes, Other (Unable to move her eyes to the right side due to dizziness) Neck: Non Tender, Supple Respiratory: Chest Non Tender, Lungs Clear, Normal Breath Sounds, No Accessory Muscle Use, No Respiratory Distress Cardiovascular: Regular Rate, Rhythm, No Edema, No Gallop, No JVD, No Murmur, Normal Peripheral Pulses Gastrointestinal: Soft, Tenderness (right lower quadrant) Rectal: Tenderness (LLQ) Back: Normal Inspection, No CVA Tenderness, No Vertebral Tenderness Extremity: Normal Capillary Refill, Normal Inspection, Normal Range of Motion, Non Tender, No Calf Tenderness, No Pedal Edema Neurologic/Psychiatric: Alert, Oriented x3, No Motor/Sensory Deficits, Normal Mood/Affect Skin: Normal Color, Warm/Dry A/P-Cardiology Admission Diagnosis Vertigo Labyrinthitis Diverticulitis Hypertension Assessment/Plan Dizziness with nausea and vomiting, questionable labyrinthitis, vertigo. Had normal CT scan, consider evaluation with MRI of the brain and cerebellum, managed by primary care physician Diverticulitis, sigmoid diverticulitis, having abdominal pain, nausea. Receiving antibiotics and managed by primary care team Gram-negative meka sepsis, no signs of endocarditis, white count are better. Will review 2-D echo and will consider NISREEN if needed. Hypertension, continue to monitor blood pressure at this time Hyperlipidemia, maintained on statin. Hypothyroidism, followed and managed by primary care physician Clinical Quality Measures DVT/VTE Risk/Contraindication: Risk Factor Score Per Nursin RFS Level Per Nursing on Admit: 4+=Very High STONE JONES MD Jun 03, 2019 16:13
[2019-06-04 00:56] VITALS: BP 119/73
[2019-06-04] MEDS: metroNIDAZOLE 500 MG/100 ML IVPB (PRE-MIX) IV SCH ×4 (05:36→23:57)
[2019-06-04] MEDS: NS IV 1000 ML 1,000 ML IV SCH ×2 (05:37→10:22)
[2019-06-04 06:24] LABS: BASOPHILS % (AUTO) 0 % (0-10); EOSINOPHILS # (AUTO) 0.2 10^3/uL (0.0-0.3); EOSINOPHILS % (AUTO) 2 % (0-10); HEMATOCRIT 35 % (35-52); HEMOGLOBIN 11.6 G/DL (11.5-16.0); LYMPHOCYTES # (AUTO) 2.7 X 10^3 (1.0-4.0); LYMPHOCYTES % (AUTO) 36 % (12-44); MEAN CORPUSCULAR HEMOGLOBIN 30 PG (25-34); MEAN CORPUSCULAR HGB CONC 33 G/DL (32-36); MEAN CORPUSCULAR VOLUME 92 FL (80-99); MEAN PLATELET VOLUME 11.3 FL (7.4-10.4); MONOCYTES # (AUTO) 0.5 X 10^3 (0.0-1.0); MONOCYTES % (AUTO) 6 % (0-12); NEUTROPHILS # (AUTO) 4.1 X 10^3 (1.8-7.8); NEUTROPHILS % (AUTO) 55 % (42-75); PLATELET COUNT 182 10^3/uL (130-400); RED CELL DISTRIBUTION WIDTH 12.7 % (10.0-14.5); WHITE BLOOD COUNT 7.5 10^3/uL (4.3-11.0)
[2019-06-04 06:47] LABS: ALANINE AMINOTRANSFERASE 22 U/L (0-55); ALBUMIN 3.4 GM/DL (3.2-4.5); ALKALINE PHOSPHATASE 77 U/L (40-136); BILIRUBIN,TOTAL 0.3 MG/DL (0.1-1.0); BUN/CREATININE RATIO 10; CALCIUM 8.2 MG/DL (8.5-10.1); CARBON DIOXIDE 23 MMOL/L (21-32); CHLORIDE 110 MMOL/L (98-107); CREATININE SERUM 0.82 MG/DL (0.60-1.30); GFR ESTIMATED > 60; GLUCOSE 92 MG/DL (70-105); POTASSIUM 3.6 MMOL/L (3.6-5.0); SODIUM 144 MMOL/L (135-145); TOTAL PROTEIN 5.5 GM/DL (6.4-8.2)
[2019-06-04 08:00] VITALS: BP 130/81
[2019-06-04] MEDS: ONDANSETRON 4 MG/2 ML (SDV) Z0FRAN IV PRN (08:20)
[2019-06-04] MEDS ORDERED: FAMOTIDINE 20MG/2ML IV (PEPCID) IVP SCH (09:00)
--- NOTE | 2019-06-04 09:42 | Physical Therapy Progress Note ---
Therapy Progress Note Patient declined PT and vertigo exercises on this date. Spouse reports she is to have an MRI today. PT will attempt in a.m. Physician notified. 1 ref ([phone]) DIOR TENORIO PT Jun 04, 2019 09:42
[2019-06-04] MEDS: ENOXAPARIN 40 MG/0.4 ML (LOVENOX) SYR SC SCH (09:54)
[2019-06-04] MEDS ORDERED: LORazepam INJ 2 MG/ML (ATIVAN) VIAL IVP NR (10:00)
--- NOTE | 2019-06-04 10:18 | Occupational Therapy Eval ---
OT Evaluation-General/PLF Medical Diagnosis Admission Date Jun 02, 2019 at 16:40 Medical Diagnosis: diverticulosis/dizziness/N&V Onset Date: Jun 02, 2019 Therapy Diagnosis Therapy Diagnosis: Decreased ADL and functional mobility abilites Height/Weight Height (Feet): 5 Height (Inches): 10.00 Weight (Pounds): 253 Weight (Ounces): 9.0 Precautions Precautions/Isolations: Standard Precautions Safety Interventions: None Referral Physician: Lois Referral Reason: Activity Tolerance, Self Care, Evaluation/Treatment, Strengthening/ROM Medical History Pertinent Medical History: Hypothroidism, Smoking Additional Medical History She had a colonoscopy back in the 1970s. She is never had any bowel problems. Current History 1-year-old white female clinic patient of [facility] who presented to [facility] with severe left lower quadrant pain with nausea and vomiting and the severity of the pain had increased since Friday. She reports that the drive over here over each bump made the abdominal pain worse. Upon work-up she was found to have leukocytosis and severe abdominal pain so CT scan was obtained showing left-sided colonic diverticulitis and elevated lactic acid at 2.38. Her urinalysis and chest x-ray were both normal. She was placed on IV antibiotics IV fluids and currently she feels much better but is still having a lot of pain in the left lower quadrant Reviewed History: Yes Social History Home: Multilevel Current Living Status: Spouse Entry Into Home: Stairs Without Railing Steps Into Home: 2 (no handrail) Steps Inside Home: 13 Pt's unemployed also, available for assist at home. ADL-Prior Level of Function Therapy Code Descriptions/Definitions Functional [place] Measure: 0=Not Assessed/NA 4=Minimal Assistance 1=Total Assistance 5=Supervision or Setup 2=Maximal Assistance 6=Modified [place] 3=Moderate Assistance 7=Complete [place] Therapy Quality Codes: 6 Independent with activity with or without an assistive device 5 Patient requires set up or clean up by helper. Patient completes activity by themselves 4 Supervision or touching assist (CGA). Victor provide cues , steadying assist 3 The helper provides less than half the effort to complete the activity 2 The helper provides more than half the effort to complete the activity 1 Dependent. The helper does all the effort to complete an activity 7 Patient refused to complete or attempt activity 9 The patient did not perform the activity before the current illness or injury 88 Not attempted due to Medical conditions or safety concerns Functional Abilities and Goals: Independent: Patient completed the activities by him/herself, with or without an assistive device, with no assistance from a helper. Needed Some Help: Patient needed partial assistance from another person to complete activities. Dependent: A helper completed the activities for the patient. Unknown: Not Applicable: ADL PLOF Comments Pt was IND with ADL/ IADLs. Self Care: Independent Functional Cognition: Independent DME/Equipment Comments Pt was IND with ADL/ IADLs, no use of AE. Pt lives in multi level house, bedroom upstairs with half bath, full bath downstairs with walk-in shower with no grab bars or DME. 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 Drive Self: Yes OT Current Status Subjective Pt seen in reclined in bed. Pt c/o dizziness, 2/10 pain within L abdomen. Pt stated her bowels were moving this morning. Pt agreeable to OT evaluation. present during evaluation. Appearance Drowsy, limited eye opening while in bed. Mental Status/Objective Patient Orientation: Person, Place, Situation, Normal For Age Attachments: IV Current Glasses/Contacts: Yes Hearing Aids: No Dentures/Partials: No Hand Dominance: Right Upper Extremity ROM WFL Upper Extremity Coordination WFL finger opposition Upper Extremity Sensation WFL- denies any tingling/ numbness Upper Extremity Strength Pt refused MMT on arms due to dizziness Edema: not present ADL-Treatment ADL-Current Pt states she has not changed clothes nor showered since admit. Pt refuses sponge bath or clothing change, stating she will do it later in day. Therapy Code Descriptions/Definitions Functional [place] Measure: 0=Not Assessed/NA 4=Minimal Assistance 1=Total Assistance 5=Supervision or Setup 2=Maximal Assistance 6=Modified [place] 3=Moderate Assistance 7=Complete [place] Therapy Quality Codes: 6 Independent with activity with or without an assistive device 5 Patient requires set up or clean up by helper. Patient completes activity by themselves 4 Supervision or touching assist (CGA). Victor provide cues , steadying assist 3 The helper provides less than half the effort to complete the activity 2 The helper provides more than half the effort to complete the activity 1 Dependent. The helper does all the effort to complete an activity 7 Patient refused to complete or attempt activity 9 The patient did not perform the activity before the current illness or inju ry 88 Not attempted due to Medical conditions or safety concerns Eating (FIM): 5 (clear liquid diet per pt.) Grooming (FIM): 2 (Pt stated assist needed with hair due to dizziness, WFL BUE) Toileting (FIM): 4 (CGA during standing when pulling up LE dressings) Transfers (B, C, W/C) (FIM): 4 (CGA for safety due to vertigo) Toilet/Commode Transfer (FIM): 5 (SBA for safety, utilized hand rails) Pt c/o dizziness during activity. No nystagmus noted. Pt required increased time during change of position due to vertigo. Pt requested using bathroom rather than commode. Pt sit to stand with SBA, utilized FWW to ambulate to bathroom. Pt paused 3x while ambulating to bathroom in order to decrease vertigo. Other Treatments Pt sit EOB, required increased time for bed mobility. Pt's nurse present at end of evaluation, left with call light in reach and all needs met. Education OT Patient Education: Energy conservation, Modified ADL techniques, Purpose of tx/functional activities, Rehab process, Safety issues, Transfer techniques Teaching Recipient: Patient Teaching Methods: Demonstration Response to Teaching: Verbalize Understanding, Return Demonstration OT Short Term Goals Short Term Goals Grooming(FIM): 4 Bathing(FIM): 3 1=Demonstrate adherence to instructed precautions during ADL tasks. 2=Patient will verbalize/demonstrate understanding of assistive device s/modifications for ADL. 3=Patient will improve strength/tolerance for activity to enable patient to perform ADL's. OT Distribution Spec Goals Nursing Home Goals Eating (FIM): 7 Grooming(FIM): 6 Bathing(FIM): 4 Upper Body Dressing(FIM): 5 Lower Body Dressing(FIM): 5 Toileting(FIM): 6 Transfers (B,C,W/C) (FIM): 6 Toilet/Commode Transfer(FIM): 6 Shower Transfer(FIM): 5 Additional Goals: 1-Demonstrate ADL Tasks, 2-Verbalize Understanding, 3- ImproveStrength/Joanne 1=Demonstrate adherence to instructed precautions during ADL tasks. 2=Patient will verbalize/demonstrate understanding of assistive devices/modifications for ADL. 3=Patient will improve strength/tolerance for activity to enable patient to perform ADL's. OT Education/Plan Problem List/Assessment Assessment: Decreased Activ Tolerance, Decreased UE Strength, Impaired Bed Mobility, Impaired Funct Balance, Impaired I ADL's, Impaired Self-Care Skills Discharge Recommendations Plan/Recommendations: Continue POC Therapy Discharge Recommendati: Other, See Comments (Home with family) Equpiment Recommendations-D/C: Bath Chair, Hull Line Crew Member, Sock Aide, Dressing Stick Patient/Family Goals Pt desires to decrease the dizziness and increase strenght to go home. Treatment Plan/Plan of Care Treatment,Training & Education: Yes Patient would benefit from OT for education, treatment and training to promote independence in ADL's, mobility, safety and/or upper extremity function for ADL's. Plan of Care: ADL Retraining, Caregiver Training, Functional Mobility, Group Exercise/Act as Ind, UE Funct Exercise/Act Frequency: 5 times per week Estimated Hrs Per Day: .25 hour per day Agreement: Yes Rehab Potential: Fair Time/GCodes Start Time: 09:25 Stop Time: 09:52 Total Time Billed (hr/min): 27 Billed Treatment Time 1, EVM 15 ADL, 12 minutes YASMEEN MARINA OTR Jun 04, 2019 10:18
--- NOTE | 2019-06-04 10:20 | Cardiology Progress Note ---
Subjective Date Seen by Provider: Jun 04, 2019 Time Seen by Provider: 10:19 Subjective/Events-last exam patient is laying down in bed, having less dizziness but still having significant left ear pain Review of Systems General: No Chills, No Night Sweats, No Fatigue, No Malaise, No Appetite, No Other HEENT: No Head Aches, No Visual Changes, No Eye Pain, No Ear Pain, No Dysphasia, No Sinus Congestion, No Post Nasal Drip, No Sore Throat, No Other Pulmonary: No Dyspnea, No Cough, No Pleuritic Chest Pain, No Other Cardiovascular: No: Chest Pain, Palpitations, Orthopnea, Paroxysmal Noc. Dyspnea, Edema, Lt Headedness, Other Focused Exam Lactate Level 06/02/19 12:23: Lactic Acid Level 2.38*H 06/02/19 14:23: Lactic Acid Level 1.31 Objective-Cardiology Exam Last Set of Vital Signs Vital Signs 06/04/19 08:00 Temp 97.8 Pulse 57 Resp 20 B/P (MAP) 130/81 (97) Pulse Ox 96 O2 Delivery Room Air Capillary Refill : Less Than 3 Seconds I&O Intake and Output 06/04/19 00:00 Intake Total 3260 ml Output Total 1800 ml Balance 1460 ml Intake Oral 2050 ml IV Total 1210 ml Output Urine Total 1800 ml # Bowel Movements 1 General: Alert, Oriented X3, Cooperative HEENT: Atraumatic Neck: No JVD, No Thyromegaly Lungs: Clear to Auscultation, Normal Air Movement Heart: Regular Rate, Normal S1, Normal S2, No Murmurs Abdomen: Normal Bowel Sounds, Soft, No Tenderness, No Hepatosplenomegaly, No Masses Extremities: No Clubbing, No Cyanosis, No Edema, Normal Pulses, No Tenderness/Swelling Skin: No Rashes, No Breakdown, No Significant Lesion Neuro: Normal Gait, Normal Speech, Strength at 5/5 X4 Ext, Normal Tone, Sensation Intact Psych/Mental Status: Mental Status NL, Mood NL Results Lab Laboratory Tests 06/04/19 05:45 A/P-Cardiology Admission Diagnosis Vertigo Labyrinthitis Diverticulitis Hypertension Assessment/Plan Dizziness with nausea and vomiting, questionable labyrinthitis, vertigo. Had normal CT scan, planning to evaluate MRI of the brain and IAC Diverticulitis, sigmoid diverticulitis, having abdominal pain, nausea. Receiving antibiotics and managed by primary care team Gram-negative meka sepsis, no signs of endocarditis, white count are better. Will review 2-D echo and will consider NISREEN if needed. Hypertension, continue to monitor blood pressure at this time Hyperlipidemia, maintained on statin. Hypothyroidism, followed and managed by primary care physician Clinical Quality Measures DVT/VTE Risk/Contraindication: Risk Factor Score Per Nursin RFS Level Per Nursing on Admit: 4+=Very High STONE JONES MD Jun 04, 2019 10:20
[2019-06-04] MEDS: POTASSIUM CL 10MEQ/50ML IVPB 50 ML IV SCH ×4 (10:21→18:48)
--- NOTE | 2019-06-04 10:30 | Progress Note ---
Subjective Date Seen by a Provider: Jun 04, 2019 Time Seen by a Provider: 10:00 Subjective/Events-last exam doing better. LLQ pain improving. no vertigo. no fever/chills. tolerating diet. Focused Exam Lactate Level 06/02/19 12:23: Lactic Acid Level 2.38*H 06/02/19 14:23: Lactic Acid Level 1.31 Objective Exam Vital Signs Date Time Temp Pulse Resp B/P (MAP) Pulse Ox O2 Delivery O2 Flow Rate FiO2 06/04/19 08:00 97.8 57 20 130/81 (97) 96 Room Air 06/04/19 00:56 99.0 52 18 119/73 (88) 96 Room Air 06/03/19 21:45 Room Air 06/03/19 16:00 97.4 61 20 135/67 (89) 94 Room Air 06/03/19 12:00 98.2 57 18 133/75 (94) 95 Room Air I & O 06/04/19 06:59 Intake Total 3070 ml Output Total 1800 ml Balance 1270 ml Capillary Refill : Less Than 3 Seconds General Appearance: No Apparent Distress HEENT: PERRL/EOMI Neck: Full Range of Motion Respiratory: Rhonci Cardiovascular: Regular Rate, Rhythm Gastrointestinal: normal bowel sounds, soft Extremity: Normal Capillary Refill Neurologic/Psychiatric: Alert, Oriented x3 Skin: Normal Color Lymphatic: No Adenopathy Results Lab Laboratory Tests 06/04/19 05:45: White Blood Count 7.5, Red Blood Count 3.83L, Hemoglobin 11.6, Hematocrit 35, Mean Corpuscular Volume 92, Mean Corpuscular Hemoglobin 30, Mean Corpuscular Hemoglobin Concent 33, Red Cell Distribution Width 12.7, Platelet Count 182, Mean Platelet Volume 11.3H, Neutrophils (%) (Auto) 55, Lymphocytes (%) (Auto) 36, Monocytes (%) (Auto) 6, Eosinophils (%) (Auto) 2, Basophils (%) (Auto) 0, Neutrophils # (Auto) 4.1, Lymphocytes # (Auto) 2.7, Monocytes # (Auto) 0.5, Eosinophils # (Auto) 0.2, Basophils # (Auto) 0.0, Sodium Level 144, Potassium Level 3.6, Chloride Level 110H, Carbon Dioxide Level 23, Anion Gap 11, Blood Urea Nitrogen 8, Creatinine 0.82, Estimat Glomerular Filtration Rate > 60, BUN/Creatinine Ratio 10, Glucose Level 92, Calcium Level 8.2L, Corrected Calcium 8.7, Total Bilirubin 0.3, Aspartate Amino Transf (AST/SGOT) 13, Alanine Aminotransferase (ALT/SGPT) 22, Alkaline Phosphatase 77, Total Protein 5.5L, Albumin 3.4 Microbiology 06/02/19 Blood Culture - Preliminary, Resulted No growth Assessment/Plan Assessment/Plan Assess & Plan/Chief Complaint sigmoid diverticulitis. continue abx. advance to dys3 diet. ambulate. f/u colonoscopy 6 weeks. Clinical Quality Measures DVT/VTE Risk/Contraindication: Risk Factor Score Per Nursin RFS Level Per Nursing on Admit: 4+=Very High LANDON YA MD Jun 04, 2019 10:30
--- NOTE | 2019-06-04 10:53 | Progress Note - Hospitalist ---
Subjective HPI/CC On Admission Date Seen by Provider: Jun 04, 2019 Time Seen by Provider: 09:00 Chief complaint: Abdominal pain with dizziness History of present illness: This is a 59-year-old white female clinic patient of [facility] who presented to [facility] ER with severe left lower quadrant pain with nausea and vomiting and the severity of the pain had increased since Friday. She had a colonoscopy back in the 1970s. She is never had any bowel problems. She reports that the drive over here over each bump made the abdominal pain worse. Upon work-up she was found to have leukocytosis and severe abdominal pain so CT scan was obtained showing left-sided colonic diverticulitis and elevated lactic acid at 2.38. Her urinalysis and chest x-ray were both normal. She was placed on IV antibiotics IV fluids and currently she feels much better but is still having a lot of pain in the left lower quadrant. Dr. Glass was consulted and will help manage the diverticulitis. Her is at the bedside. She is a retired milk pickup truck driver. Subjective/Events-last exam Patient doing a little better today MRI ordered upon Dr. Huff recommendations Dr. Glass continues to see her Tolerating Jell-O and broth although does not understand why anybody would be given chicken broth for breakfast Refused PT pretty much refused to learn maneuvers to help with vertigo Check meds and labs Maintain on IV fluids Antibiotic tolerated for bacteremia Will hopefully be able to get her up and around and be able to go home this weekend seems to be very reasonable today and has no concerns and does not appear to be threatening Review of Systems General: Fatigue, Other (dizzy) Gastrointestinal: Abdominal Pain Focused Exam Lactate Level 06/02/19 12:23: Lactic Acid Level 2.38*H 06/02/19 14:23: Lactic Acid Level 1.31 Objective Exam Vital Signs Vital Signs Date Time Temp Pulse Resp B/P (MAP) Pulse Ox O2 Delivery O2 Flow Rate FiO2 06/04/19 09:00 Room Air 06/04/19 08:00 97.8 57 20 130/81 (97) 96 Capillary Refill : Less Than 3 Seconds General Appearance: No Apparent Distress, WD/WN, Chronically ill Respiratory: Chest Non Tender, Lungs Clear, Normal Breath Sounds, No Accessory Muscle Use, No Respiratory Distress Cardiovascular: Regular Rate, Rhythm, No Edema, No Gallop, No JVD, No Murmur, Normal Peripheral Pulses Genital/Rectal: Tenderness Neurologic/Psychiatric: Alert, Oriented x3, No Motor/Sensory Deficits, Normal Mood/Affect Results/Procedures Lab Laboratory Tests 06/04/19 05:45 Patient resulted labs reviewed. Assessment/Plan Assessment and Plan Assess & Plan/Chief Complaint Assessment: Acute diverticulitis Gram negative bacteremia Severe vertigo Plan: IV abx ENT consult Dr Huff consult DR Glass consult CT brain MRI brain Diagnosis/Problems Diagnosis/Problems (1) Diverticulitis Status: Acute (2) Dehydration Status: Acute (3) Lactic acidosis Status: Acute (4) Leukocytosis Status: Acute Qualifiers: Leukocytosis type: unspecified Qualified Codes: D72.829 - Elevated white blood cell count, unspecified (5) Nausea and vomiting Status: Acute Qualifiers: Vomiting type: unspecified Vomiting Intractability: non-intractable Qualified Codes: R11.2 - Nausea with vomiting, unspecified (6) Dizziness Status: Acute (7) Vertigo Status: Acute (8) Acute labyrinthitis Status: Acute Qualifiers: Laterality: bilateral Qualified Codes: H83.03 - Labyrinthitis, bilateral (9) Gram-negative bacteremia Status: Acute Clinical Quality Measures DVT/VTE Risk/Contraindication: Risk Factor Score Per Nursin RFS Level Per Nursing on Admit: 4+=Very High TRAM HATHAWAY DO Jun 04, 2019 10:53
--- NOTE | 2019-06-04 10:55 | NUR ---
PRE MEDICATED WITH ATIVAN 1MG IV FOR MRI, THIS NURSE ACCOMPANIED PATIENT TO MRI, PATIENT VERY ANXIOUS, C/O DIZZINESS WITH MOVEMENT. IV SITE WITHOUT REDNESS OR SWELLING.
--- NOTE | 2019-06-04 12:17 | Diagnostic Imaging Report ---
CLINICAL INDICATION: Patient having dizzy spells. EXAM: MRI of the brain performed without IV contrast. Sequences include axial DWI, ADC map, axial T2, axial FLAIR, axial T1, axial gradient echo, axial 3-D FIESTA of the temporal bones/basal cistern, and sagittal T1. COMPARISON: Head CT without contrast dated 06/03/2019. FINDINGS: Motion artifact obscures portions of the axial FLAIR sequence. There is no evidence of acute cerebral infarct, intracranial hemorrhage, or gross mass effect. The brain parenchymal volume appears appropriate for patient's age. There is normal lieva-white matter distinction. There is no significant midline shift or herniation. The [place] vascular structures show no gross abnormality as visualized. The pituitary gland, sella, and suprasellar regions are unremarkable as visualized. There is no evidence of hydrocephalus. The basal cisterns are unremarkable. The skull, extracranial soft tissue, and orbits are unremarkable. There is no significant paranasal sinus disease. There is minimal fluid in both mastoid air cells. The bilateral IACs show no space occupying mass. The basal cisterns show no space-occupying mass. The visualized cranial nerves in the basal cisterns show no significant abnormality. There is normal high T2 fluid signal within the bilateral inner ear otic capsular structures. IMPRESSION: Minimal fluid in both mastoid air cells. Otherwise, unremarkable MRI of the brain. Dictated by: Dictated on workstation # [id number]
[2019-06-04] MEDS: cefTRIAXone 2,000 MG/SWFI 20 ML IV PUSH IV SCH ×2 (12:25)
--- NOTE | 2019-06-04 13:10 | NUR ---
Initial visit with the pt and her , Mikel. Offered compassionate presence and active listening for stressors. The pt is not buddhism. Positive sources of meaning and coping include their children, grandchildren, and loving relationships within their community.
--- NOTE | 2019-06-04 14:12 | Physical Therapy Progress Note ---
Therapy Progress Note Spouse report patient is getting better. Patient is asleep and spouse requested no PT this p.m. PT to attempt in a.m. 1 ref ([id number]) DIOR TENORIO PT Jun 04, 2019 14:12
[2019-06-04] MEDS ORDERED: LORATADINE (CLARITIN) 10 MG TAB PO NR (15:45)
[2019-06-04] MEDS ORDERED: SCOPOLAMINE 1.5 MG (TRANSDERM-SCOP) PATCH TD NR (15:45)
[2019-06-04 15:54] VITALS: BP 102/59
[2019-06-04] MEDS: LORATADINE (CLARITIN) 10 MG TAB PO SCH (20:16)
[2019-06-04 23:52] VITALS: BP 148/83
[2019-06-05 06:01] LABS: BASOPHILS % (AUTO) 0 % (0-10); EOSINOPHILS # (AUTO) 0.2 10^3/uL (0.0-0.3); EOSINOPHILS % (AUTO) 2 % (0-10); HEMATOCRIT 34 % (35-52); HEMOGLOBIN 11.7 G/DL (11.5-16.0); LYMPHOCYTES # (AUTO) 3.2 X 10^3 (1.0-4.0); LYMPHOCYTES % (AUTO) 34 % (12-44); MEAN CORPUSCULAR HEMOGLOBIN 31 PG (25-34); MEAN CORPUSCULAR HGB CONC 34 G/DL (32-36); MEAN CORPUSCULAR VOLUME 90 FL (80-99); MONOCYTES # (AUTO) 0.6 X 10^3 (0.0-1.0); MONOCYTES % (AUTO) 7 % (0-12); NEUTROPHILS # (AUTO) 5.3 X 10^3 (1.8-7.8); NEUTROPHILS % (AUTO) 57 % (42-75); PLATELET COUNT 187 10^3/uL (130-400); RED CELL DISTRIBUTION WIDTH 12.9 % (10.0-14.5); WHITE BLOOD COUNT 9.3 10^3/uL (4.3-11.0)
[2019-06-05] MEDS: metroNIDAZOLE 500 MG/100 ML IVPB (PRE-MIX) IV SCH ×2 (06:10→11:29)
[2019-06-05 06:22] LABS: ALANINE AMINOTRANSFERASE 20 U/L (0-55); ALBUMIN 3.4 GM/DL (3.2-4.5); ALKALINE PHOSPHATASE 93 U/L (40-136); BILIRUBIN,TOTAL 0.3 MG/DL (0.1-1.0); BUN/CREATININE RATIO 7; CALCIUM 8.7 MG/DL (8.5-10.1); CARBON DIOXIDE 25 MMOL/L (21-32); CHLORIDE 109 MMOL/L (98-107); CREATININE SERUM 0.83 MG/DL (0.60-1.30); GFR ESTIMATED > 60; GLUCOSE 93 MG/DL (70-105); POTASSIUM 3.8 MMOL/L (3.6-5.0); SODIUM 142 MMOL/L (135-145); TOTAL PROTEIN 5.7 GM/DL (6.4-8.2)
[2019-06-05 08:00] VITALS: BP 133/79
[2019-06-05] MEDS: LORATADINE (CLARITIN) 10 MG TAB PO SCH (08:28)
[2019-06-05] MEDS ORDERED: FAMOTIDINE 20 MG (PEPCID) TABLET PO SCH (09:00)
--- NOTE | 2019-06-05 09:52 | Cardiology Progress Note ---
Subjective Date Seen by Provider: Jun 05, 2019 Time Seen by Provider: 09:51 Subjective/Events-last exam Patient is in bed, still having dizziness. No chest pain. Review of Systems General: No Chills, No Night Sweats; Fatigue, Malaise; No Appetite, No Other HEENT: No Head Aches, No Visual Changes, No Eye Pain; Ear Pain; No Dysphasia, No Sinus Congestion, No Post Nasal Drip, No Sore Throat; Other (Dizziness and ear pain) Pulmonary: No Dyspnea, No Cough, No Pleuritic Chest Pain, No Other Cardiovascular: No: Chest Pain, Palpitations, Orthopnea, Paroxysmal Noc. Dyspnea, Edema, Lt Headedness, Other Focused Exam Lactate Level 06/02/19 12:23: Lactic Acid Level 2.38*H 06/02/19 14:23: Lactic Acid Level 1.31 Objective-Cardiology Exam Last Set of Vital Signs Vital Signs 06/05/19 06/05/19 08:00 09:00 Temp 98.9 Pulse 61 Resp 18 B/P (MAP) 133/79 (97) Pulse Ox 97 O2 Delivery Room Air Capillary Refill : Less Than 3 Seconds I&O Intake and Output 06/05/19 00:00 Intake Total 1820 ml Output Total 1600 ml Balance 220 ml Intake Oral 1670 ml IV Total 150 ml Output Urine Total 1600 ml # Voids 1 General: Alert, Oriented X3, Cooperative HEENT: Atraumatic Neck: No JVD, No Thyromegaly Lungs: Clear to Auscultation, Normal Air Movement Heart: Regular Rate, Normal S1, Normal S2, No Murmurs Abdomen: Normal Bowel Sounds, Soft, No Tenderness, No Hepatosplenomegaly, No Masses Extremities: No Clubbing, No Cyanosis, No Edema, Normal Pulses, No Tenderness/Swelling Skin: No Rashes, No Breakdown, No Significant Lesion Neuro: Normal Gait, Normal Speech, Strength at 5/5 X4 Ext, Normal Tone, Sensation Intact Psych/Mental Status: Mental Status NL, Mood NL Results Lab Laboratory Tests 06/05/19 05:48 A/P-Cardiology Admission Diagnosis Vertigo Labyrinthitis Diverticulitis Hypertension Assessment/Plan Dizziness with nausea and vomiting, questionable labyrinthitis, vertigo. Had normal CT scan, normal MRI of the brain. Managed by primary care team Diverticulitis, sigmoid diverticulitis, having abdominal pain, nausea. Receiving antibiotics and managed by primary care team Gram-negative meka sepsis, no signs of endocarditis, white count are better. Will review 2-D echo and will consider NISREEN if needed. Hypertension, continue to monitor blood pressure at this time Hyperlipidemia, maintained on statin. Hypothyroidism, followed and managed by primary care physician Clinical Quality Measures DVT/VTE Risk/Contraindication: Risk Factor Score Per Nursin RFS Level Per Nursing on Admit: 4+=Very High STONE JONES MD Jun 05, 2019 09:52
[2019-06-05] MEDS: ENOXAPARIN 40 MG/0.4 ML (LOVENOX) SYR SC SCH (10:10)
--- NOTE | 2019-06-05 10:56 | Progress Note ---
Subjective Date Seen by a Provider: Jun 05, 2019 Time Seen by a Provider: 10:20 Subjective/Events-last exam Patient seen with Dr. Glass. Patient reports that she felt good last night but reports this morning that she feels rm foggy. She reports the dizziness is better but feels like her balance is off and has a buzzing in her left ear. She reports LLQ abdominal tenderness and nausea but no vomiting. No fever/chills. Tolerating diet and ambulating with walker. Having BMs but does report pain with BM. Focused Exam Lactate Level 06/02/19 12:23: Lactic Acid Level 2.38*H 06/02/19 14:23: Lactic Acid Level 1.31 Objective Exam Vital Signs Date Time Temp Pulse Resp B/P (MAP) Pulse Ox O2 Delivery O2 Flow Rate FiO2 06/05/19 09:00 Room Air 06/05/19 08:00 98.9 61 18 133/79 (97) 97 Room Air 06/04/19 23:52 98.0 52 18 148/83 (104) 96 Room Air 06/04/19 21:48 Room Air 06/04/19 15:54 98.9 62 20 102/59 (73) 95 Room Air I & O 06/05/19 07:00 Intake Total 2310 ml Output Total 2800 ml Balance -490 ml Capillary Refill : Less Than 3 Seconds General Appearance: No Apparent Distress, WD/WN Neck: Full Range of Motion, Normal Inspection, Supple Respiratory: Normal Breath Sounds, No Accessory Muscle Use, No Respiratory Dist ress Cardiovascular: Regular Rate, Rhythm, No Edema Gastrointestinal: normal bowel sounds, soft, tenderness (LLQ) Extremity: Normal Capillary Refill, Normal Inspection, Normal Range of Motion Neurologic/Psychiatric: Alert, Oriented x3 Skin: Normal Color, Warm/Dry Results Lab Laboratory Tests 06/05/19 05:48: White Blood Count 9.3, Red Blood Count 3.79L, Hemoglobin 11.7, Hematocrit 34L, Mean Corpuscular Volume 90, Mean Corpuscular Hemoglobin 31, Mean Corpuscular Hemoglobin Concent 34, Red Cell Distribution Width 12.9, Platelet Count 187, Mean Platelet Volume 11.0H, Neutrophils (%) (Auto) 57, Lymphocytes (%) (Auto) 34, Monocytes (%) (Auto) 7, Eosinophils (%) (Auto) 2, Basophils (%) (Auto) 0, Neutrophils # (Auto) 5.3, Lymphocytes # (Auto) 3.2, Monocytes # (Auto) 0.6, Eosinophils # (Auto) 0.2, Basophils # (Auto) 0.0, Sodium Level 142, Potassium Level 3.8, Chloride Level 109H, Carbon Dioxide Level 25, Anion Gap 8, Blood Urea Nitrogen 6L, Creatinine 0.83, Estimat Glomerular Filtration Rate > 60, BUN/Creatinine Ratio 7, Glucose Level 93, Calcium Level 8.7, Corrected Calcium 9.2, Total Bilirubin 0.3, Aspartate Amino Transf (AST/SGOT) 14, Alanine Amino transferase (ALT/SGPT) 20, Alkaline Phosphatase 93, Total Protein 5.7L, Albumin 3.4 Microbiology 06/02/19 Blood Culture - Preliminary, Resulted No growth Assessment/Plan Assessment/Plan Assess & Plan/Chief Complaint A 59 year old female with sigmoid diverticulitis. continue abx. advance to dys3 diet. ambulate. f/u colonoscopy 6 weeks. Clinical Quality Measures DVT/VTE Risk/Contraindication: Risk Factor Score Per Nursin RFS Level Per Nursing on Admit: 4+=Very High RICKY RUBIN STOCK CONTROL SUPERVISOR Jun 05, 2019 10:56
[2019-06-05] MEDS: cefTRIAXone 2,000 MG/SWFI 20 ML IV PUSH IV SCH ×2 (11:29)
--- NOTE | 2019-06-05 12:13 | Physical Therapy Daily Note ---
PT Daily Note-Current Subjective Pain 2-4/10 stomach. Pt c/o waves of dizziness and light headedness. "I would have worked with you had you come last night but I cant today." Pt declines treatment due to increased dizziness at this time. Transfers Therapy Code Descriptions/Definitions Functional [place] Measure: 0=Not Assessed/NA 4=Minimal Assistance 1=Total Assistance 5=Supervision or Setup 2=Maximal Assistance 6=Modified [place] 3=Moderate Assistance 7=Complete [place] Therapy Quality Codes: 6 Independent with activity with or without an assistive device 5 Patient requires set up or clean up by helper. Patient completes activity by themselves 4 Supervision or touching assist (CGA). [place] provide cues , steadying assist 3 The helper provides less than half the effort to complete the activity 2 The helper provides more than half the effort to complete the activity 1 Dependent. The helper does all the effort to complete an activity 7 Patient refused to complete or attempt activity 9 The patient did not perform the activity before the current illness or injury 88 Not attempted due to Medical conditions or safety concerns Weight Bearing Right Lower Extremity: Right Weight Bearing/Tolerated Left Lower Extremity: Left Weight Bearing/Tolerated Assessment Current Status: Refused Treatment PT resting comfortably in bed, lights out per pt request. PT Short Term Goals Short Term Goals Time Frame: Jun 09, 2019 Gait (FIM): 7 PT Plan Treatment/Plan Treatment Plan: Continue Plan of Care Treatment Plan: Education, Functional Activity Joanne, Gait, Safety, Therapeutic Exercise Treatment Duration: Jun 09, 2019 Frequency: 5 times per week Estimated Hrs Per Day: .25 hour per day Patient and/or Family Agrees t: Yes Time/GCodes Time In: 850 Time Out: 910 Total Billed Treatment Time: 0 Total Billed Treatment no treatment rendered TONG PRADO CPTA Jun 05, 2019 12:13
[2019-06-05] MEDS ORDERED: HYDR-34 PO (12:17)
[2019-06-05] MEDS ORDERED: DIAZ2TAB PO (12:17)
[2019-06-05] MEDS ORDERED: AMOX-358 PO (12:17)
[2019-06-05] MEDS ORDERED: ONDA4TAB11 PO (12:17)
--- NOTE | 2019-06-05 12:18 | Discharge Summary ---
Diagnosis/Chief Complaint Date of Admission Jun 02, 2019 at 16:40 Date of Discharge Discharge Date: Jun 05, 2019 Admission Diagnosis Assessment: Acute diverticulitis Elevated lactic acidosis due to hypovolemia Hypothyroidism with normal TSH Leukocytosis Plan: IV abx Pain control IVF Dr Glass appreciated [facility] Discharge Diagnosis (1) Diverticulitis Status: Acute (2) Dehydration Status: Acute (3) Lactic acidosis Status: Acute (4) Leukocytosis Status: Acute (5) Nausea and vomiting Status: Acute (6) Dizziness Status: Acute (7) Vertigo Status: Acute (8) Acute labyrinthitis Status: Acute (9) Gram-negative bacteremia Status: Acute Discharge Summary Discharge Physical Exam Allergies: Coded Allergies: Iodinated Contrast- Oral and IV Dye (Unverified Allergy, Mild, 08/26/16) stratching throat, hives aspirin (Verified Allergy, Unknown, 06/02/19) BLEEDING codeine (Verified Allergy, Unknown, 06/02/19) LOW BP Vitals & I&Os Vital Signs Date Time Temp Pulse Resp B/P (MAP) Pulse Ox O2 Delivery O2 Flow Rate FiO2 06/05/19 14:15 61 18 133/79 97 Room Air 06/05/19 08:00 98.9 General Appearance: No Apparent Distress, WD/WN Respiratory: Chest Non Tender, Lungs Clear, Normal Breath Sounds, No Accessory Muscle Use, No Respiratory Distress Cardiovascular: Regular Rate, Rhythm, No Edema, No Gallop, No JVD, No Murmur, Normal Peripheral Pulses Gastrointestinal: Normal Bowel Sounds, No Organomegaly, No Pulsatile Mass, Non Tender, Soft Neurologic/Psychiatric: Alert, Oriented x3, No Motor/Sensory Deficits, Normal Mood/Affect Hospital Course Was the Problem List Reviewed?: Yes Hospital course: This is a 59-year-old white female that is usually in good health who presented to the ER with severe illness with left upper lower quadrant abdominal pain was found to have acute diverticulitis with severe vertigo and dizziness. IV fluids were maintained for elevated lactic acid and sepsis and Dr. Glass was consulted who recommended conservative management. Lactic acid resolved but then microbiology reported blood culture gram-negative bacteria which was E. coli so patient was maintained on antibiotics empirically. Severe vertigo prompted cardiology evaluation due to gram-negative bacteremia echocardiogram performed he recommended MRI that was completed which showed no evidence of any source of vertigo. ENT consultation ensued diagnosed with labyrinthitis and recommended conservative management. Overall patient improved physical therapy was able to work with her she was able to ambulate in the halls IV fluids were stopped bowels remain normal function she was eating and drinking was deemed stable for discharge with close follow-up with Dr. Rios for colonoscopy and [facility] for checkup. Labs (last 24 hrs) Laboratory Tests 06/05/19 05:48: White Blood Count 9.3, Red Blood Count 3.79L, Hemoglobin 11.7, Hematocrit 34L, Mean Corpuscular Volume 90, Mean Corpuscular Hemoglobin 31, Mean Corpuscular Hemoglobin Concent 34, Red Cell Distribution Width 12.9, Platelet Count 187, Mean Platelet Volume 11.0H, Neutrophils (%) (Auto) 57, Lymphocytes (%) (Auto) 34, Monocytes (%) (Auto) 7, Eosinophils (%) (Auto) 2, Basophils (%) (Auto) 0, Neutrophils # (Auto) 5.3, Lymphocytes # (Auto) 3.2, Monocytes # (Auto) 0.6, Eosinophils # (Auto) 0.2, Basophils # (Auto) 0.0, Sodium Level 142, Potassium Level 3.8, Chloride Level 109H, Carbon Dioxide Level 25, Anion Gap 8, Blood Urea Nitrogen 6L, Creatinine 0.83, Estimat Glomerular Filtration Rate > 60, BUN/Creatinine Ratio 7, Glucose Level 93, Calcium Level 8.7, Corrected Calcium 9.2, Total Bilirubin 0.3, Aspartate Amino Transf (AST/SGOT) 14, Alanine Aminot ransferase (ALT/SGPT) 20, Alkaline Phosphatase 93, Total Protein 5.7L, Albumin 3.4 Microbiology 06/02/19 Blood Culture - Preliminary, Resulted No growth Patient resulted labs reviewed. Pending Labs Discussion & Recommendations Discharge Planning: <30 minutes discharge planning Discharge Home Medications: Active Scripts Active Ondansetron Odt (Ondansetron) 4 Mg Tab.rapdis 4 Mg PO Q6H Valium (Diazepam) 2 Mg Tablet 2 Mg PO BID PRN Augmentin 875-125 Tablet (Amoxicillin/Potassium Clav) 1 Each Tablet 1 Each PO BID Lortab 7.5 Mg Tablet (Acetaminophen/Hydrocodone Bitart) 1 Ea Tablet 1-2 Ea PO Q4H PRN Reported Lovaza ([place]-3 Acid Ethyl Esters) 1 Gm Capsule 2 Gm PO BID TAKES 2 (1GM) CAPSULES Multivitamins (Multivitamin) 1 Each Tablet 1 Tab PO DAILY Vitamin B Complex 1 Each Capsule 1 Cap PO DAILY Metoclopramide HCl 5 Mg Tablet 5 Mg PO BID PRN Levothyroxine Sodium 75 Mcg Tablet 75 Mcg PO DAILY Lisinopril 20 Mg Tablet 20 Mg PO DAILY Atorvastatin Calcium 80 Mg Tablet 80 Mg PO HS Instructions to patient/family Please see electronic discharge instructions given to patient. Clinical Quality Measures DVT/VTE Risk/Contraindication: Risk Factor Score Per Nursin RFS Level Per Nursing on Admit: 4+=Very High Problem Qualifiers (1) Leukocytosis: Leukocytosis type: unspecified Qualified Codes: D72.829 - Elevated white blood cell count, unspecified (2) Nausea and vomiting: Vomiting type: unspecified Vomiting Intractability: non-intractable Qualified Codes: R11.2 - Nausea with vomiting, unspecified (3) Acute labyrinthitis: Laterality: bilateral Qualified Codes: H83.03 - Labyrinthitis, bilateral TRAM HATHAWAY DO Jun 05, 2019 12:18
[2019-06-05 14:15] VITALS: BP 133/79
[2019-06-07] MEDS ORDERED: SCOPOLAMINE PATCH REMOVAL TP SCH (15:45)
--- NOTE | 2019-06-08 08:08 | CONSULTATION REPORT ---
DATE OF SERVICE: 06/03/2019 ADMITTING PHYSICIAN: Dr. Hull. HISTORY OF PRESENT ILLNESS: The patient is a 59-year-old female, who presented with left lower quadrant abdominal pain, nausea and vomiting as well as dizziness. She states that she has had problems with constipation for many years and states that she did have a colonoscopy in the 1970s due to crampy abdominal pain as well as constipation; however, nothing was found. A CT scan was obtained on this admission, which did show some mild noncomplicated diverticulitis of the sigmoid colon. She was placed on IV antibiotics; however, today, she did have some episodes of dizziness. She states that she has had this before when she had flu-like infection two years ago. Her blood stream did grow gram positive rods, most likely consistent with some form of infectious etiology. She initially came in with an elevated white count of 14; however, since being admitted and placed on IV fluids and IV antibiotics, her labs have normalized. She does still complain of some pain in the left lower abdominal quadrant on a crampy intermittent basis. PAST MEDICAL HISTORY: Hypertension, hypothyroid. PAST SURGICAL HISTORY: Appendectomy, hysterectomy. ALLERGIES: ASPIRIN, CODEINE, IV CONTRAST DYE. MEDICATIONS: Lisinopril 20 mg daily, atorvastatin 80 mg daily, levothyroxine 75 mcg daily, [place] 3 b.i.d., vitamin B daily. SOCIAL HISTORY: Negative smoke, negative alcohol. FAMILY HISTORY: Noncontributory. VITAL SIGNS: Temperature 98.2, blood pressure 133/75, pulse is 57, respirations 18, pulse ox 95% on room air. REVIEW OF SYSTEMS: This is well-nourished female, who is currently guarded in a position secondary to the dizzy sensation. She reports intermittent episodes of pain in the left lower abdominal quadrant on an intermittent basis and crampy and sharp in nature. She had some mild nausea; however, no vomiting. No fever, chills. No recent inadvertent weight loss. No cough or sputum production. No chest pain, palpitations, diaphoresis. All other review of systems negative. PHYSICAL EXAMINATION: CHEST: Clear. Good breath sounds bilaterally. HEART: Regular, no murmurs. EXTREMITIES: No lower extremity edema, negative Homans sign. HEENT: No scleral icterus. NECK: No cervical lymphadenopathy. ABDOMEN: Soft, nondistended. There is pain in the left lower abdominal quadrant upon deep palpation. No palpable masses. ASSESSMENT AND PLAN: A 59-year-old female with noncomplicated sigmoid diverticulitis. She has had secondary symptoms, which include dizziness, nausea and vertigo. For now, we will continue with IV hydration, bowel rest, clear liquid diet and IV antibiotics. She is currently getting an echocardiogram to look for any potential endocarditis. We will recommend a followup colonoscopy to evaluate the entirety of her colon in approximately 6 weeks to rule out neoplastic process as well. Job ID: [id number] DocumentID: [id number] Dictated Date: 06/03/2019 15:32:12 [place] Conveyor Operator Date: 06/03/2019 15:57:01 Dictated By: LANDON YA MD
== END 2019-06-05 14:00 | disposition home or self-care (01) | DRG 391 ==
LOC: EDUNIT# 12:09 → ER 12:11 → 4TH 16:40
PROVIDERS: ADMIT Internal Medicine; ATTEND Internal Medicine
DX: K57.32 Diverticulitis of large intestine without perforation or abscess without bleeding (principal); A41.59 Other Gram-negative sepsis; H83.03 Labyrinthitis, bilateral; R42 Dizziness and giddiness; E87.2 Acidosis; E86.0 Dehydration; E86.1 Hypovolemia; D72.829 Elevated white blood cell count, unspecified; E66.9 Obesity, unspecified; K59.00 Constipation, unspecified; F17.210 Nicotine dependence, cigarettes, uncomplicated; E03.9 Hypothyroidism, unspecified; Z68.36 Body mass index [BMI] 36.0-36.9, adult
CPT/HCPCS: 36415; 51701; 70450; 70551; 71045; 74176; 80053; 81000; 82150; 83605; 83690; 84443; 84484; 85007; 85025; 85027; 86141; 87040; 87077; 93005; 93306; 96361; 96374; 96375

== ENCOUNTER → 2019-06-23 | Outpatient (CLI) | payer SELFPAY ==
[~2019-06-23] MED LIST: AMOX-358 PO; ATOR80TA76 PO; DIAZ2TAB PO; HYDR-34 PO; LEVO100V8 IV; LEVO75TA6 PO; LISI-552 PO; METO5TAB2 PO; METO5TAB75 PO; MULT1TAB69 PO; OMEG1CAP PO; ONDA4TAB11 PO; VITA1CAP PO
== END ==
LOC: LABNPT 10:12
PROVIDERS: ATTEND Surgery
DX: Z01.89 Encounter for other specified special examinations (principal)
CPT/HCPCS: 87328; 87329

== ENCOUNTER 2019-07-08 14:59 | Outpatient (CLI) | payer SELFPAY ==
[~2019-07-08] VITALS: Ht 177.8 cm; Wt 112.7 kg
== END 2019-07-08 15:07 | disposition home or self-care (01) ==
LOC: PREOP 14:59
PROVIDERS: ATTEND Surgery
DX: Z01.818 Encounter for other preprocedural examination (principal)

== ENCOUNTER 2020-01-20 08:28 | Outpatient (CLI) | payer SELFPAY ==
[~2020-01-20] VITALS: Ht 177.8 cm; Wt 125.9 kg
[2020-01-20] MEDS ORDERED: OMEP40CA27 PO (09:19)
[2020-01-20] MEDS ORDERED: LEVO100T7 PO (09:19)
== END 2020-01-20 09:31 ==
LOC: PREOP 08:28
PROVIDERS: ATTEND Surgery
DX: Z01.818 Encounter for other preprocedural examination (principal)

== ENCOUNTER 2023-04-05 16:54 | Emergency (ER) | payer SELFPAY ==
[~2023-04-05] VITALS: Ht 175.3 cm; Wt 119.3 kg
[~2023-04-05 16:54] MED LIST changes: +LEVO100T7 PO; -LISI-552 PO; +LISI20TA26 PO; +MULT-567 PO; -MULT1TAB69 PO; +NF-LOVAZAC PO; -OMEG1CAP PO; +OMEP40CA6 PO
--- NOTE | 2023-04-05 17:10 | ED General ---
General Stated Complaint: ALLERGIC REACTION Source of Information: Patient Exam Limitations: No Limitations (TULIO ZIEGLER DO) History of Present Illness Date Seen by Provider: Apr 05, 2023 Time Seen by Provider: 17:01 Initial Comments 63-year-old female presents the emergency department today for lower lip swelling. Symptoms started about 10:00 this morning and have slowly worsened throughout the day. She now feels like she has some submandibular swelling as well. No shortness of breath but is worried that her tongue may swell and cause issues. She is on lisinopril for blood pressure and has been for about 2 years. She also takes Victoza for diabetes and has been on it for about 6 months. She denies any fevers or chills. No cough. No other new exposures. All other systems reviewed and negative except documented per HPI. Voice recognition software was used to help create this chart (TULIO ZIEGLER DO) Allergies and Home Medications Allergies Coded Allergies: lisinopril (Verified Allergy, Severe, angioedema, 04/05/23) Iodinated Contrast Media (Unverified Allergy, Mild, 08/26/16) stratching throat, hives aspirin (Verified Allergy, Unknown, 06/02/19) BLEEDING codeine (Verified Allergy, Unknown, 06/02/19) LOW BP Patient Home Medication List Home Medication List Reviewed: Yes (TULIO ZIEGLER DO) Atorvastatin Calcium (Atorvastatin Calcium) 80 Mg Tablet, 80 MG PO HS, (Reported) Entered as Reported by: JERSON WEAVER on 06/02/19 151 Levothyroxine Sodium (Levothyroxine Sodium) 100 Mcg Tablet, 100 MCG PO DAILY, (Reported) Entered as Reported by: CHRISTINE DOWLING on 01/20/20 0919 Lisinopril (Lisinopril) 20 Mg Tablet, 20 MG PO DAILY, (Reported) Entered as Reported by: JERSON WEAVER on 06/02/19 151 Multivitamin (Multivitamins) 1 Each Tablet, 1 TAB PO DAILY, (Reported) Entered as Reported by: DINAH RANGEL on 06/03/19 0930 [place]-3 Acid Ethyl Esters (Lovaza) 1 Gm Capsule, 2 GM PO BID, (Reported) Entered as Reported by: DINAH RANGEL on 06/03/19 0931 Omeprazole (Omeprazole) 40 Mg Capsule.dr, 40 MG PO DAILY, (Reported) Entered as Reported by: CHRISTINE DOWLING on 01/20/20 09 Vitamin B Complex (Vitamin B Complex) 1 Each Capsule, 1 CAP PO DAILY, (Reported) Entered as Reported by: DINAH RANGEL on 06/03/19 0930 Review of Systems Review of Systems Constitutional: see HPI (TULIO ZIEGLER DO) Past Osyvdkv-Wsehha-Dwtmyo Hx Patient Social History Tobacco Use?: No Use of E-Cig and/or Vaping dev: No Substance use?: No Alcohol Use?: No (TULIO ZIEGLER DO) Seasonal Allergies Seasonal Allergies: Yes (TULIO ZIEGLER DO) Past Medical History Surgeries: Yes Appendectomy Respiratory: No Cardiac: Yes High Cholesterol, Hypertension 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 9.0oz. 115.024161ot; 39.82 BMI Method:Stated General Appearance: No Apparent Distress, WD/WN Eyes: Bilateral Eye Normal Inspection, Bilateral Eye PERRL, Bilateral Eye EOMI HEENT: Normal ENT Inspection, Other (Lower lip has mild swelling. No tongue swelling. No soft palate swelling. Visualized portion of the posterior oropharynx are normal as well. No uvula swelling.) Neck: Normal Inspection, Non Tender, Supple Respiratory: Chest Non Tender, Lungs Clear, Normal Breath Sounds, No Accessory Muscle Use, No Respiratory Distress Cardiovascular: Regular Rate, Rhythm, No Edema, No Murmur, Normal Peripheral Pulses Gastrointestinal: Normal Bowel Sounds, Non Tender, Soft Extremity: Normal Capillary Refill, Normal Inspection, Non Tender, No Calf Tenderness Neurologic/Psychiatric: Alert, Oriented x3 Skin: Normal Color, Warm/Dry; No Rash (TULIO ZIEGLER DO) Progress/Results/Core Measures Suspected Sepsis SIRS Temperature: Pulse: Respiratory Rate: Blood Pressure / Mean: (TULIO ZIEGLER DO) Results/Orders Medications Given in ED Current Medications Medications Dose Ordered Sig/[place]enn Route Start Time Stop Time Status Last Admin Dose Admin Diphenhydramine HCl 50 mg ONCE ONCE IVP 04/05/23 17:15 04/05/23 17:16 DC 04/05/23 17:18 50 MG Famotidine 20 mg ONCE ONCE IVP 04/05/23 17:15 04/05/23 17:16 DC 04/05/23 17:18 20 MG Methylprednisolone Sodium Succinate 125 mg ONCE ONCE IVP 04/05/23 17:15 04/05/23 17:16 DC 04/05/23 17:18 125 MG (LEWIS NARAYANAN MD) Vital Signs/I&O 04/05/23 04/05/23 16:59 16:59 Temp 36.9 Pulse 77 Resp 17 B/P (MAP) 142/77 (98) O2 Delivery Room Air Room Air (LEWIS NARAYANAN MD) Vital Signs/I&O Capillary Refill : (TULIO ZIEGLER DO) Progress Note : Time: 19:24 Progress Note Care of this patient was assumed from Dr. Ziegler at shift change. She had received all, Solu-Medrol, and Pepcid by IV route. Edema of her lower lip is now improving. She has some itchiness but otherwise feels well. She feels comfortable with discharge at this time. Discharge instructions were reviewed including return precautions. (LEWIS NARAYANAN MD) Departure Impression Primary Impression: Angioedema Qualified Codes: T78.3XXA - Angioneurotic edema, initial encounter Disposition: HOME, SELF-CARE Condition: Improved Departure-Patient Inst. Decision time for Depature: 19:25 (LEWIS NARAYANAN MD) Referrals: [facility] (PCP/Family) Primary Care Physician Patient Instructions: Angioedema Add. Discharge Instructions: You most likely are experiencing a reaction called angioedema. Lisinopril is a common cause of this reaction. Please stop lisinopril and avoid any medications in the class of SALLY inhibitors which would include any blood pressure medications and being in "-pril'. If you experience any itching or hives, you may take Benadryl (diphenhydramine) up to 50 mg every 4 hours as needed. If you have worsening of lip swelling, swelling of the tongue, or swelling/tightness of your airway, return to the emergency room promptly. Call 911 if necessary. Replace lisinopril with amlodipine as prescribed. Discussed this change with your doctor next week to determine if this is the best replacement for lisinopril. Please report angioedema as an adverse reaction to lisinopril anytime you report allergies during a medical encounter. Scripts Amlodipine Besylate (Amlodipine Besylate) 5 Mg Tablet 5 MG PO DAILY, #10 TAB Prov: LEWIS NARAYANAN MD 04/05/23 Copy Copies To 1: [facility]/TULIO RIZZO DO Apr 05, 2023 17:10 LEWIS NARAYANAN MD Apr 05, 2023 19:29
[2023-04-05] MEDS ORDERED: methylPREDNISolone 125 MG (Solu-MEDROL) VIAL IVP ONE (17:15)
[2023-04-05] MEDS ORDERED: FAMOTIDINE 20MG/2ML IV (PEPCID) IVP ONE (17:15)
[2023-04-05] MEDS ORDERED: diphenhydrAMINE 50 MG/ML INJ (BENADRYL) IVP ONE (17:15)
[2023-04-05] MEDS ORDERED: AMLO-250 PO (19:27)
[2023-04-05 19:56] VITALS: BP 119/73
== END 2023-04-05 19:57 | disposition home or self-care (01) ==
LOC: EDUNIT# 16:54 → ER 16:56
DX: T78.3XXA Angioneurotic edema, initial encounter (principal); I10 Essential (primary) hypertension; E11.9 Type 2 diabetes mellitus without complications; Z79.84 Long term (current) use of oral hypoglycemic drugs; Z79.899 Other long term (current) drug therapy